=== PATIENT | female | born 1950 | race Asian ===

== ENCOUNTER 2017-05-28 21:52 | Inpatient (IN) | payer MEDICARE, MEDICAID ==
--- NOTE | 2017-05-28 23:04 | ED Physician Chart ---
ED Chief Complaint/HPI - Patient Information Date Seen:: 05/28/17 Time Seen:: 22:10 Chief Complaint:: Agitation; AMS History of Present Illness:: onset x one day of agitation, AMS; no report of SIs, H/As, neck pain, trauma, C/ P, SOB, Abd. Pain, A/N/V/D/c, fever, chills, or urinary s/s Allergies:: Allergies Allergy/AdvReac Type Severity Reaction Status Date / Time codeine Allergy Verified 05/28/17 22:13 Penicillins Allergy Verified 05/28/17 22:13 Vitals:: Vital Signs - 8 hr 05/28/17 22:10 Temp 98.2 F HR 95 RR 18 BP 131/76 O2 Sat % 96 Historian:: Patient, EMS Review:: Nurse's Note Reviewed, EMS run form Reviewed, Transfer documents Reviewed ED Review of Systems - Review of Systems General/Constitutional: No fever, No chills, No weight loss, No weakness, No diaphoresis, No edema, No loss of appetite Skin: No skin lesions, No rash, No bruising Head: No headache, No light-headedness Eyes: No loss of vision, No pain, No diplopia ENT: No earache, No nasal drainage, No sore throat, No tinnitus Neck: No neck pain, No swelling, No thyromegaly, No stiffness, No mass noted Cardio Vascular: No chest pain, No palpitations, No PND, No orthopnea, No edema Pulmonary: SOB, Cough, No sputum, Wheezing GI: No nausea, No vomiting, No diarrhea, No pain, No melena, No hematochezia, No constipation, No hematemesis G/U: No dysuria, No frequency, No hematuria [employer]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: No vaginal discharge, No abnormal vaginal bleed, No contraction Musculoskeletal: No bone or joint pain, No back pain, No muscle pain Endocrine: No polyuria, No polydipsia Psychiatric: Prior psych history, No depression, Anxiety, No suicidal ideation, No homicidal ideation, Auditory hallucination, No visual hallucination Hematopoietic: No bruising, No lymphadenopathy Allergic/Immuno: No urticaria, No angioedema Neurological: No syncope, No focal symptoms, Weakness, No paresthesia, No headache, No seizure, No dizziness, Confusion, No vertigo, Other Other: tremors ED Past Medical History - Past Medical History Obtainable: Yes Past Medical History: HTN, Asthma/COPD, Dyslipidemia, Thyroid disorder, Dementia Family History: HTN, Cancer Social History: Non Smoker, No Alcohol, No Drug Use, Single, Care Facility Surgical History: None Psychiatricy History: Depression, Schizophrenia, Bipolar Medication: Reviewed Family Medical History - Family Member Mother History Unknown: Yes ED Physical Exam - Physical Examination General/Constitutional: Awake, Well-developed, well-nourished, Alert, No distress, GCS 15, Non-toxic appearing, Ambulatory Head: Atraumatic Eyes: Lids, conjuctiva normal, PERRL, EOMI Skin: Nl inspection, No rash, No skin lesions, No ecchymosis, No lymphadenopathy Other Skin comments:: decreased turgor with dry mucous membranes ENMT: External ears, nose nl, Nasal exam nl, Lips, teeth, gums nl Neck: Nontender, Full ROM w/o pain, No JVD, No nuchal rigidity, No bruit, No mass, No stridor Respiratory: Nl effort/Exclusion, Clear to Auscultation, No Wheeze/Rhonchi/Rales Cardio Vascular: RRR, No murmur, gallop, rubs, NL S1 S2 GI: No tenderness/rebounding/guarding, No organomegaly, No hernia, Normal BS's, Nondistended, No mass/bruits, No McBurney tenderness : No CVA tenderness Extremities: No tenderness or effusion, Full ROM, normal strength in all extremities, No edema, Normal digits & nails Neuro/Psych: Alert/oriented, DTR's symmetric, Normal sensory exam, Normal motor strength, Judgement/insight normal, Mood normal, Normal gait, No focal deficits Misc: Normal back, No paraspinal tenderness ED Labs/Radiology/EKG Results - Lab Results Comments:: BUN: 40; Cr: 2.9; H/H; 11.1/33 - Radiology Results Comments:: CXR: NAD - EKG Interpretations EKG Time:: 23:26 Rate & Rhythm: 84; NSR Comments:: non-specific st-t changes; RBBB ED Septic Shock - . Is Septic Shock (SBP<90, OR Lactate>4 mmol\L) present?: No - <6hrs of presentation: Vital Signs: Vital Signs - 8 hr 05/28/17 22:10 Temp 98.2 F HR 95 RR 18 BP 131/76 O2 Sat % 96 ED Reassessment (Disposition) - Reassessment Reassessment Condition:: Improved - Diagnosis Diagnosis:: Anemia; Dehydration; Renal Faiure; Pre-Renal Azotemia; Sepsis; Agitation; AMS - Aftercare/Follow up Instructions Aftercare/Follow-Up Instructions:: Counseled pt regarding lab results/diagnosis & need follow up, Counseled pt & family regarding lab results/diagnosis & need follow up - Patient Disposition Discharge/Transfer:: Acute Care w/in this hosp Accepting Physician:: Dr. Baig Time Called:: 2339 Time Responded:: 23:40 Admitted to:: Med/Surg Spoke to:: Dr. Baig Admitting Medical Physician:: Dr. Baig Condition at Disposition:: Stable, Improved ED Discharge Plan - Patient Disposition Instructions: Psychosis
[2017-05-28 23:08] LABS: % BASOPHILS 1.3 % (0.0-2.0); % EOSINOPHILS 5.6 % (0.0-5.0); % LYMPHOCYTES 25.8 % (20.0-50.0); % MONOCYTES 9.1 % (2.0-10.0); % NEUTROPHILS 58.2 % (40.0-80.0); HEMOGLOBIN 11.1 gm/dL (12-16); MEAN CELL VOLUME 94.2 fl (81-100); MEAN CORPUSCULAR HEMOGLOBIN 31.8 pg (27.0-31.0); MEAN CORPUSCULAR HGB CONC 33.8 pg (28.0-36.0); MEAN PLATELET VOLUME 8.7 fl; NEUTROPHILE ABSOLUTE 3.3 Th/cmm (1.8-8.0); PLATELET COUNT 144 Th/cmm (150-400); RED CELL DISTRIBUTION WIDTH 13.1 % (11.5-20.0); WHITE BLOOD COUNT 5.7 Th/cmm (4.8-10.8)
[2017-05-28 23:24] LABS: ACETAMINOPHEN < 10.0 ug/mL (10.0-30.0); ALB/GLOB RATIO 1.2 (1.0-1.8); ALKALINE PHOSPHATASE 79 U/L (34-104); ANION GAP 9.7 (7.0-16.0); BILIRUBIN,TOTAL 0.2 mg/dL (0.3-1.0); BUN - UREA NITROGEN 40 mg/dL (7-25); BUN/CREATININE RATIO 13.8; CALCIUM SERUM 9.4 mg/dL (8.6-10.3); CARBON DIOXIDE 24.4 mEq/L (21.0-31.0); CHLORIDE 106 mEq/L (98-107); CHOLESTEROL 156 mg/dL (<200); CREATININE - SERUM 2.9 mg/dL (0.6-1.2); GLUCOSE 118 mg/dL (70-105); POTASSIUM SERUM 4.1 mEq/L (3.5-5.1); SGOT 16 U/L (13-39); SGPT/ALT 11 U/L (7-52); SODIUM SERUM 136 mEq/L (136-145); TRIGLYCERIDES 140 mg/dL (<150); TROP I 0.02 ng/mL (0.01-0.05)
[2017-05-28 23:33] LABS: INR 0.9 (0.5-1.4); PROTHROMBIN TIME (TEST) 9.4 SECONDS (9.5-11.5)
[2017-05-28] MEDS ORDERED: Levofloxacin 500mg/100mL 500 MG/100 ML BAG IV ONE ×2 (23:49→23:56)
[2017-05-28] MEDS ORDERED: Sodium Chloride 0.9% 1,000 ML IV ONE (23:49)
[2017-05-29 01:32] VITALS: BP 150/97
[2017-05-29] MEDS: 0.45% NS w/20 mEq KCl 1,000 ML IV SCH (02:35)
[2017-05-29] MEDS: cefTRIAXone 1 GM in Sodium Chloride 0.9% 50 ML IV SCH (03:15)
--- NOTE | 2017-05-29 07:35 | Diagnostic Imaging Report ---
CHEST X-RAY: AP view INDICATION: pain COMPARISON: None FINDINGS: Left basal density is noted. Mild increased initial lung markings are noted. No focal consolidation or effusions. Heart size is normal. Spinal scoliosis is noted. IMPRESSION: Left basal density probably due to superimposition of soft tissue structures. A small left effusion is considered less likely. Dedicated PA and lateral views would provide additional detail and assessment. Mild interstitial lung markings, nonspecific.
--- NOTE | 2017-05-29 09:16 | Consultation ---
DATE OF CONSULTATION: 05/29/2017 PSYCHIATRIC INITIAL EVALUATION AND MENTAL STATUS EXAM AGE: 67. SEX: Female. PHYSICIAN: Stan Baig M.D. CHAIRMAN CEO: Memo Geller M.D. TYPE OF THE REPORT: Psychiatric consult. REASON FOR THE CONSULT: Agitation and irritability. HISTORY OF PRESENT ILLNESS: The patient was admitted to the hospital because of increased agitation and increased paranoia. When the patient came to the Emergency Room, it was found that the patient has anemia and dehydration and the patient was admitted to the medical floor. The patient is confused and she is unable to provide any information. She is also restless and gets angry and agitated easily. She also unable to answer any of the questions coherently. The patient also seems to be slightly suspicious and slightly paranoid. She also was getting more agitated. When I asked the patient about how many children she has, her response was "10, no 20." She on the other hand was able to tell me about her date accurately. She did not know where does she live. PAST PSYCHIATRIC HISTORY: The patient has history of seems to be dementia. The patient currently is not on any anti-psychotic medications or any medications for memory. SOCIAL HISTORY: She lives in [place] in the [facility]. The patient has no known alcohol or drug use. ALLERGIES: No known allergies. MENTAL STATUS EXAM: The patient appears older than her stated age. Forgetful. Confused. Anxious. Disorganized thoughts. The patient was not able to give me any information regarding her living information as she is confused. The patient did not answer questions regarding suicide or homicide. The patient is alert, but seems to be disoriented to time, place, person, and situation. Poor insight and poor judgment. ASSESSMENT: PRIMARY DIAGNOSIS: Unspecified psychosis. SECONDARY DIAGNOSIS: Rule out dementia. TREATMENT PLAN: We will continue to monitor her behavior and her condition closely. Also, we will start the patient on Seroquel and we will adjust the dose. Also, Geropsych Unit when medically stable. JOB# [id number]
[2017-05-29 12:47] LABS: URINE BILIRUBIN NEGATIVE (NEGATIVE); URINE BLOOD NEGATIVE (NEGATIVE); URINE GLUCOSE (UA) NEGATIVE (NEGATIVE); URINE KETONE NEGATIVE (NEGATIVE); URINE PH 6.5 (4.6 - 8.0); URINE PROTEIN NEGATIVE (NEGATIVE); URINE UROBILINOGEN 0.2 E.U./dL (0.2 - 1.0)
[2017-05-29 13:08] LABS: URINE COLOR YELLOW
[2017-05-29 13:10] LABS: URINE BACTERIA NONE SEEN /hpf (NONE SEEN); URINE EPITHELIAL CELLS NONE SEEN /lpf (FEW); URINE RBC NONE SEEN /hpf (0-5)
[2017-05-29 13:11] LABS: AMPHETAMINE URINE NEGATIVE (NEGATIVE); BARBITURATES URINE NEGATIVE (NEGATIVE); METHADONE URINE NEGATIVE (NEGATIVE)
[2017-05-29] MEDS ORDERED: Probiotic Screen MC PRN (14:45)
[2017-05-29] MEDS ORDERED: Maalox 30 mL Cup PO PRN (19:28)
[2017-05-29] MEDS ORDERED: Magnesium Hydroxide (MOM) 30 mL UDC PO PRN (19:28)
--- NOTE | 2017-05-29 20:21 | History & Physical ---
ADMIT DATE: 05/29/2017 CHIEF COMPLAINT: Confusion and altered level of consciousness. HISTORY OF PRESENT ILLNESS: The patient is a 67-year-old female with long history of dementia, presented to the Emergency Room with severe confusion and altered level of consciousness. Initial workup significant for dehydration and possible sepsis. The patient admitted to the hospital and started on antibiotic fluids. Psych evaluation ordered. The patient is a poor historian. PAST MEDICAL HISTORY: Significant for hypertension, dementia, chronic anemia, psychosis and degenerative joint disease. PAST SURGICAL HISTORY: No recent surgery. ALLERGIES: She is allergic to codeine and penicillin. MEDICATIONS: Follow admission reconciliation. SOCIAL HISTORY: No smoking, no alcohol, no drugs. FAMILY HISTORY: Noncontributory. REVIEW OF SYSTEMS: RENAL SYSTEM: No history of chronic renal disorder. CARDIOVASCULAR SYSTEM: History of hypertension. ENDOCRINE SYSTEM: No diabetes or thyroid problem. GASTROINTESTINAL SYSTEM: No upper or lower gastrointestinal bleed. NEUROLOGICAL SYSTEM: She has history of dementia and psychosis. MUSCULOSKELETAL SYSTEM: She has degenerative joint disease. PHYSICAL EXAMINATION: GENERAL: She is arousable and agitated. VITAL SIGNS: Temperature 98.4, heart rate 86, blood pressure 148/97. HEENT: Normocephalic. Pupils reacting equal to light and accommodation. Sclerae clear. NECK: Supple. Negative for lymphadenopathy, JVD or bruit. CHEST: Bilateral normal. No rhonchi or wheezing. HEART: S1 and S2 normal. No murmur or gallop. ABDOMEN: Soft. Bowel sounds positive. EXTREMITIES: No edema. NEUROLOGICAL: She is arousable, not following commands. LABORATORY DATA: White blood cells 5.7, hemoglobin 11.1, hematocrit 33 and platelets 144. INR 0.90. Sodium 136, potassium 4.1, BUN 40, creatinine 2.9 and glucose 118. TSH 13.5. ASSESSMENT: 1. Altered level of consciousness. 2. Hypertension. 3. Dehydration. 4. Acute kidney injury. 5. Hypothyroidism. 6. Hypertension. 7. Dementia. 8. Psychosis. PLAN: The patient admitted to the hospital under Dr. Baig's service, IV fluid, IV antibiotic, psych evaluation. The patient will resume her medication and diet. CBC and CMP for tomorrow. JOB# [id number]
[2017-05-30] MEDS: 0.45% NS w/20 mEq KCl 1,000 ML IV SCH (01:02)
[2017-05-30] MEDS: cefTRIAXone 1 GM in Sodium Chloride 0.9% 50 ML IV SCH (03:34)
[2017-05-30] MEDS: Levothyroxine 0.088 Mg Tab PO SCH ×2 (06:36→06:41)
[2017-05-30] MEDS ORDERED: Lactobacillus Rhamnosus 10 Billion CFU Capsule PO SCH (09:00)
[2017-05-30] MEDS ORDERED: Pantoprazole 40 mg EC Tab PO SCH (09:00)
[2017-05-30] MEDS ORDERED: Atorvastatin Calcium 10 MG TAB PO SCH (09:00)
--- NOTE | 2017-05-30 18:24 | Internal Medicine Prog Note ---
Internal Medicine Subjective - Subjective Patient seen and examined:: with staff (SHE STILL REFUSING FOOD AND MEDICIN.) Patient is:: awake, in bed, talking Per staff patient has:: no adverse event Internal Medicine Objective - Results Result Diagrams: 05/28/17 22:56 05/28/17 22:56 Recent Labs: Laboratory Last Values WBC 5.7 Th/cmm (4.8-10.8) 05/28/17 22:56 RBC 3.50 Mil/cmm (3.80-5.20) L 05/28/17 22:56 Hgb 11.1 gm/dL (12-16) L 05/28/17 22:56 Hct 33.0 % (41.0-60) L 05/28/17 22:56 MCV 94.2 fl (81-100) 05/28/17 22:56 MCH 31.8 pg (27.0-31.0) H 05/28/17 22:56 MCHC Differential 33.8 pg (28.0-36.0) 05/28/17 22:56 RDW 13.1 % (11.5-20.0) 05/28/17 22:56 Plt Count 144 Th/cmm (150-400) L 05/28/17 22:56 MPV 8.7 fl 05/28/17 22:56 Neutrophils % 58.2 % (40.0-80.0) 05/28/17 22:56 Lymphocytes % 25.8 % (20.0-50.0) 05/28/17 22:56 Monocytes % 9.1 % (2.0-10.0) 05/28/17 22:56 Eosinophils % 5.6 % (0.0-5.0) H 05/28/17 22:56 Basophils % 1.3 % (0.0-2.0) 05/28/17 22:56 PT 9.4 SECONDS (9.5-11.5) L 05/28/17 22:56 INR 0.90 (0.5-1.4) 05/28/17 22:56 PTT (Actin FS) 23.0 SECONDS (26.0-38.0) L 05/28/17 22:56 Sodium 136 mEq/L (136-145) 05/28/17 22:56 Potassium 4.1 mEq/L (3.5-5.1) 05/28/17 22:56 Chloride 106 mEq/L (98-107) 05/28/17 22:56 Carbon Dioxide 24.4 mEq/L (21.0-31.0) 05/28/17 22:56 Anion Gap 9.7 (7.0-16.0) 05/28/17 22:56 BUN 40 mg/dL (7-25) H 05/28/17 22:56 Creatinine 2.9 mg/dL (0.6-1.2) H 05/28/17 22:56 Est GFR ( Amer) 20.8 ml/min (>90) 05/28/17 22:56 Est GFR (Non-Af Amer) 17.2 ml/min 05/28/17 22:56 BUN/Creatinine Ratio 13.8 05/28/17 22:56 Glucose 118 mg/dL (70-105) H 05/28/17 22:56 Hemoglobin A1c % 5.8 % (4.0-6.0) 05/28/17 22:56 Whole Bld Lactic Acid 0.79 mmol/L (0.60-1.99) 05/28/17 22:56 Calcium 9.4 mg/dL (8.6-10.3) 05/28/17 22:56 Total Bilirubin 0.2 mg/dL (0.3-1.0) L 05/28/17 22:56 AST 16 U/L (13-39) 05/28/17 22:56 ALT 11 U/L (7-52) 05/28/17 22:56 Alkaline Phosphatase 79 U/L (34-104) 05/28/17 22:56 Creatine Kinase 58 U/L (30-223) 05/28/17 22:56 Troponin I 0.02 ng/mL (0.01-0.05) 05/28/17 22:56 Total Protein 6.9 gm/dL (6.0-8.3) 05/28/17 22:56 Albumin 3.8 gm/dL (3.7-5.3) 05/28/17 22:56 Globulin 3.1 gm/dL 05/28/17 22:56 Albumin/Globulin Ratio 1.2 (1.0-1.8) 05/28/17 22:56 Triglycerides 140 mg/dL (<150) 05/28/17 22:56 Cholesterol 156 mg/dL (<200) 05/28/17 22:56 LDL Cholesterol Direct 81 mg/dL (75-193) 05/28/17 22:56 HDL Cholesterol 53 mg/dL (23-92) 05/28/17 22:56 TSH 13.05 uIU/ml (0.34-5.60) H 05/28/17 22:56 Urine Source MIDSTREAM 05/29/17 11:50 Urine Color YELLOW 05/29/17 11:50 Urine Clarity CLEAR (CLEAR) 05/29/17 11:50 Urine pH 6.5 (4.6 - 8.0) 05/29/17 11:50 Ur Specific [place]den 1.010 (1.005-1.030) 05/29/17 11:50 Urine Protein NEGATIVE mg/dL (NEGATIVE) 05/29/17 11:50 Urine Glucose (UA) NEGATIVE mg/dL (NEGATIVE) 05/29/17 11:50 Urine Ketones NEGATIVE mg/dL (NEGATIVE) 05/29/17 11:50 Urine Blood NEGATIVE (NEGATIVE) 05/29/17 11:50 Urine Nitrate NEGATIVE (NEGATIVE) 05/29/17 11:50 Urine Bilirubin NEGATIVE (NEGATIVE) 05/29/17 11:50 Urine Urobilinogen 0.2 E.U./dL (0.2 - 1.0) 05/29/17 11:50 Ur Leukocyte Esterase TRACE (NEGATIVE) H 05/29/17 11:50 Urine RBC NONE SEEN /hpf (0-5) 05/29/17 11:50 Urine WBC 2-5 /hpf (0-5) 05/29/17 11:50 Ur Epithelial Cells NONE SEEN /lpf (FEW) 05/29/17 11:50 Urine Bacteria NONE SEEN /hpf (NONE SEEN) 05/29/17 11:50 Salicylates < 25.0 mg/L (30.0-100.0) L 05/28/17 22:56 Urine Opiates Screen NEGATIVE (NEGATIVE) 05/29/17 11:50 Urine Methadone Screen NEGATIVE (NEGATIVE) 05/29/17 11:50 Acetaminophen < 10.0 ug/mL (10.0-30.0) L 05/28/17 22:56 Ur Barbiturates Screen NEGATIVE (NEGATIVE) 05/29/17 11:50 Ur Tricyclics Screen NEGATIVE (NEGATIVE) 05/29/17 11:50 Ur Phencyclidine Scrn NEGATIVE (NEGATIVE) 05/29/17 11:50 Amphetamines Screen NEGATIVE (NEGATIVE) 05/29/17 11:50 U Methamphetamines Scrn NEGATIVE (NEGATIVE) 05/29/17 11:50 U Benzodiazepines Scrn NEGATIVE (NEGATIVE) 05/29/17 11:50 U Cocaine Metab Screen NEGATIVE (NEGATIVE) 05/29/17 11:50 U Cannabinoids Screen NEGATIVE (NEGATIVE) 05/29/17 11:50 Ethyl Alcohol < 10 mg/dL (0-10) 05/28/17 22:56 RPR NONREACTIVE (NONREACTIVE) 05/28/17 22:56 - Physical Exam Vitals and I&O: Vital Signs Temp 98.9 F 05/30/17 04:00 Pulse 83 05/30/17 04:00 Resp 18 05/30/17 15:50 BP 144/72 05/30/17 04:00 Pulse Ox 97 05/30/17 04:00 Intake & Output 05/29/17 05/30/17 05/30/17 18:59 06:59 18:59 Intake Total 1060 110 Balance 1060 110 Weight (lbs) 61.689 kg 61.689 kg Intake: Intake, IV Amount 1000 50 0.45% NS w/20 mEq KCl 1, 1000 000 ml @ 75 mls/hr IV . [id number] [facility] Rx#:[id number] cefTRIAXone 1 gm In 50 Sodium Chloride 0.9% 50 ml @ 100 mls/hr IV Q24HR [facility] Rx#:[id number] Oral 60 60 Other: # Voids 2 3 Active Medications: Current Medications Acetaminophen (Tylenol) 650 mg PO Q6HR PRN PRN Reason: Pain (Mild) Stop: 07/28/17 19:27 Al Hydrox/Mg Hydrox/Simethicone (Maalox) 30 ml PO Q4HR PRN PRN Reason: GI DISTRESS Stop: 07/28/17 19:27 Atorvastatin Calcium (Lipitor) 10 mg PO DAILY [facility] PRN Reason: Protocol Stop: 07/29/17 08:59 Last Admin: 05/30/17 09:58 Dose: Not Given Docusate Sodium (Colace) 250 mg PO BID [facility] Stop: 07/29/17 08:59 Last Admin: 05/30/17 18:06 Dose: Not Given Ceftriaxone Sodium 1 gm/ (Sodium Chloride) 50 mls @ 100 mls/hr IV Q24HR [facility] Stop: 07/28/17 02:59 Last Infusion: 05/30/17 04:04 Dose: Infused Potassium Chloride/Sodium Chloride (0.45% Ns W/20 Meq Kcl) 1,000 mls @ 75 mls/ hr IV .[id number] [facility] Stop: 07/28/17 01:26 Last Admin: 05/30/17 01:02 Dose: 75 mls/hr Lactobacillus Rhamnosus (Culturelle) 1 each PO DAILY [facility] Stop: 07/29/17 08:59 Last Admin: 05/30/17 09:58 Dose: Not Given Levothyroxine Sodium (Synthroid) 0.088 mg PO QDAC [facility] Stop: 07/29/17 07:29 Last Admin: 05/30/17 06:41 Dose: Not Given Magnesium Hydroxide (Milk Of Magnesia) 30 ml PO Q4HR PRN PRN Reason: Constipation Stop: 07/28/17 19:27 Miscellaneous (Probiotic Screen) 1 ea MC PRN PRN PRN Reason: PROTOCOL Stop: 07/28/17 14:44 Pantoprazole Sodium (Protonix) 40 mg PO DAILY [facility] Stop: 07/29/17 08:59 Last Admin: 05/30/17 09:58 Dose: Not Given Vitamin D (Vitamin D) 400 iu PO DAILY [facility] Stop: 07/29/17 08:59 Last Admin: 05/30/17 09:58 Dose: Not Given General: alert, demented HEENT: NC/AT, PERRLA, EOMI, anicteric sclerae, throat clear Neck: Supple, No JVD, No thyromegaly, +2 carotid pulse wo bruit, No LAD Lungs: CTAB Cardiovascular: RRR, Normal S1, Normal S2, without murmur Abdomen: soft, non-tender, non-distended Extremities: clear Neurological: no change Internal Medicine Assmt/Plan - Assessment Assessment: 1.HTN. 2.DEHYDRATION. 3.SIMON. 4.DEMENTIA. - Plan Plan: CINTINUE ON CURRENT MEDICATION AND DIET. Nutritional Asmnt/Malnutr-PDOC - Dietary Evaluation Malnutrition Findings (Please click <Entered> for more info): Nutritional Asmnt/Malnutrition Start: 05/29/17 15: 47 Text: Status: Complete Freq: Document 05/29/17 15:47 SASHA (Rec: 05/29/17 16:08 [id number]) Nutritional Asmnt/Malnutrition Patient General Information Nutritional Screening High Risk Screening Diagnosis ER: dehydration, sepsis, anemia, pre-renal azotemia, renal failure, AMS Pertinent Medical Hx/Surgical Hx ER report: HTN, asthma/COPD, dyspilidemia, thyroid disorder , dementia Psych report: unspecified psychosis, r/o dementia Subjective Information 67 year old female. Pt was pleasant, able to provide simple nutrition hx, slight confusion noted. Encouraged increase fluid intake due to dehydration, listed beverage options available, pt nodded. Pt is edentulous, denied difficulties chewing/ swallowing. Pt denied allergies, denied nutritinoal concerns, stated good appetite . PHARMACEUTICAL WORKER at bedside denied nutritinoal concerns. No muscle/fat wasting noted. Current Diet Order/ Nutrition Support Mech soft ground Pertinent Medications Culturelle, IV Potassium Chloride Sodium Chloride Pertinent Labs 05/28: A1c 5.8, glucose 118H, BUN 40H, creatinine 2.9H Nutritional Hx/Data Height 1.63 m Height (Calculated Centimeters) 162.6 Current Weight (lbs) 61.326 kg Weight (Calculated Kilograms) 61.3 Weight (Calculated Grams) 02372.7 Ethel Body Weight 120 Weight Status Approriate GI Symptoms Food Allergies No Skin Integrity/Comment: [place]. Skin intact. Estimated Nutritional Goals BEE in Kcals: Using Current wt Calories/Kcals/Kg CBW 135.2lb/61.5kg Kcals Calculated 1845-2153kcal (30-35kcal/kg) Protein: Using Current wt Protein Calculated 74-86g (1.2-1.4g/kg, sepsis vs renal failure per ER report, monitor renal) Fluid: ml Per MD (renal failure per ER report) Nutritional Problem 1. Problem Problem Impaired nutrient utilization related to Etiology renal failure, dehydration aeb Signs/Symptoms: BUN 40H, creaitine 2.9H Intervention/Recommendation Comments 1. Recommend low sodium mech soft ground diet to aid renal function, renal failure noted in ER report. 2. Encourage fluid intake, dx dehydration. Expected Outcomes/Goals Expected Outcomes/Goals 1. PO intake to meet at least 75% of estimated nutritinoal eneds.
== END 2017-05-30 20:47 | DRG 872 ==
LOC: ER 21:52 → MSI 23:45
PROVIDERS: ADMIT Family Medicine; ATTEND Family Medicine
DX: A41.9 Sepsis, unspecified organism (principal); N17.9 Acute kidney failure, unspecified; F03.90 Unspecified dementia, unspecified severity, without behavioral disturbance, psychotic disturbance, mood disturbance, and anxiety; J44.9 Chronic obstructive pulmonary disease, unspecified; F20.9 Schizophrenia, unspecified; E86.0 Dehydration; I10 Essential (primary) hypertension; E03.9 Hypothyroidism, unspecified; F29 Unspecified psychosis not due to a substance or known physiological condition; M19.90 Unspecified osteoarthritis, unspecified site; D64.9 Anemia, unspecified; E78.5 Hyperlipidemia, unspecified; F31.9 Bipolar disorder, unspecified; Z88.5 Allergy status to narcotic agent; Z88.0 Allergy status to penicillin; Z82.49 Family history of ischemic heart disease and other diseases of the circulatory system
CPT/HCPCS: 36415-UA; 71010-TC; 80053-TC; 80061-TC; 80307; 80320-TC; 80329-TC; 81001-TC; 82550-TC; 83036-90; 83605; 84443-TC; 84484-TC; 85025-TC; 85610-TC; 85730-TC; 86592-TC; 93005; J0696; J1956; J3480; J7030; Z7610

== ENCOUNTER 2017-05-30 20:48 | Inpatient (IN) | payer MEDICARE, MEDICAID ==
[2017-05-30 21:36] VITALS: BP 135/75
[2017-05-30] MEDS ORDERED: Maalox 30 mL Cup PO PRN (22:05)
[2017-05-30] MEDS ORDERED: Magnesium Hydroxide (MOM) 30 mL UDC PO PRN (22:05)
--- NOTE | 2017-05-31 01:00 | Consultation ---
DATE OF CONSULTATION: 05/30/2017 IDENTIFYING INFORMATION: The patient is a 67-year-old female. CHIEF COMPLAINT: The patient has been agitated. HISTORY OF PRESENT ILLNESS: The patient was admitted to the hospital with possible sepsis. She has been also paranoid and delusional. The patient was restless, unable to participate in meaningful conversation, confused, stared at me aimlessly. PAST PSYCHIATRIC HISTORY: The patient was unable to give me any information regarding prior psychiatric treatment. The patient also has been dehydrated with possible sepsis, so she is not a greatest historian because of her medical condition. MEDICAL HISTORY: Has hypertension, dehydration, acute kidney injury, hypothyroidism, hypertension, psychosis with a history of dementia. FAMILY AND SOCIAL HISTORY: Unobtainable. The patient has been living in [place]. MENTAL STATUS EXAMINATION: The patient is appropriately dressed, not well groomed. She was staring at me, would not answer any of my questions, rambling, very poor insight. She has to be prompted by the staff for her ADLs. She is also suffering with sepsis and dehydration and so that may add to her medical condition. When asked about suicide and homicide, she would not answer me. I was unable to test her memory. Her insight and judgment is impaired. IMPRESSION: Psychosis, not otherwise specified, possible delirium secondary to her medical condition and delirium. PLAN: I expect her mental condition will improve and as her medical condition improves, possibly sepsis and dehydration, the patient can eat and continue with the Seroquel. Thank you very much for allowing me to participate in the care of this most interesting lady. [facility]# [id number]
[2017-05-31] MEDS: Levothyroxine 0.088 Mg Tab PO SCH (06:54)
[2017-05-31] MEDS: Lactobacillus Rhamnosus 10 Billion CFU Capsule PO SCH (09:00)
[2017-05-31] MEDS: Atorvastatin Calcium 10 MG TAB PO SCH (09:01)
[2017-05-31] MEDS: Pantoprazole 40 mg EC Tab PO SCH (09:01)
[2017-05-31] MEDS: risperiDONE 4 mg Tab PO SCH (21:19)
--- NOTE | 2017-06-01 00:20 | History & Physical ---
ADMIT DATE: 05/31/2017 CHIEF COMPLAINT: Agitation. HISTORY OF PRESENT ILLNESS: A 67-year-old female with past medical history significant for psychiatric disorder, Parkinson's disease, and hypothyroidism, presents from [facility] for agitation and mental status changes. The patient was brought to the Emergency Room, found to be dehydrated with possible urinary tract infection. She was admitted for further treatment and care. She was admitted to acute unit initially and now transferred after medically cleared to psychiatric unit. The patient is a poor historian and does not feel like participating in the history taking. However, she is calm and collected. Denies any medical complaints. PAST MEDICAL HISTORY: As per records, patient has history of Parkinson's disease, COPD, hyperlipidemia, hypothyroidism, hypertension, degenerative joint disease, psychiatric disorder, and chronic anemia. MEDICATIONS: As per reconciliation. ALLERGIES: The patient has allergy to penicillin and codeine. SOCIAL HISTORY: Denies tobacco, alcohol or illicit drug use. The patient is a [facility] resident. FAMILY HISTORY: Noncontributory. REVIEW OF SYSTEMS: IMMUNOLOGIC: No recurrent infection. CARDIOVASCULAR: The patient has history of hypertension, no known heart disease. GASTROINTESTINAL: No nausea, vomiting or diarrhea. The patient is on Protonix for GERD. ENDOCRINE: No diabetes. The patient does have thyroid disorder. NEUROLOGIC: No history of seizure or stroke. The patient has a history of Parkinson's disease. HEMATOLOGIC: No bleeding or clotting disorder. The patient has chronic anemia. PHYSICAL EXAMINATION: GENERAL: The patient is sitting in bed, in no acute distress. VITAL SIGNS: Temperature 98.1, pulse is 70, respirations 18, blood pressure 153/88. HEENT: Pupils equally round, anicteric sclerae. NECK: Supple. No JVD, mass or bruit. LUNGS: Clear to auscultation. HEART: S1, S2. Regular rate and rhythm. ABDOMEN: Soft, nontender, positive bowel sounds. EXTREMITIES: No clubbing, cyanosis or edema. BACK: No tenderness or deformity. NEUROLOGIC: Moves all extremities equally, no lateralizing sign. Able to communicate needs. LABORATORY DATA: BUN on admission was 40, creatinine 2.9, TSH is 13, albumin 3.8. Hemoglobin 11.1, platelets 144. IMPRESSION: 1. Acute psychiatric disorder. 2. Parkinson's disease. 3. Degenerative joint disease. 4. Hypertension. 5. Chronic anemia. 6. Hypothyroidism. 7. History of chronic obstructive pulmonary disease. 8. Hyperlipidemia. 9. Acute kidney injury with possible underlying chronic kidney disease. PLAN: Continue current medications. The patient is to have follow up of her blood test done in the acute unit to monitor the patient's renal function and anemia. I will resume her Cozaar given her high blood pressure. We will continue to monitor her vitals. The patient is participate in activity. JOB# [id number]
--- NOTE | 2017-06-01 02:54 | Psychosocial Evaluation ---
DATE OF SERVICE: 05/31/2017 JUSTIFICATION FOR HOSPITALIZATION: Agitation, verbally and physically aggressive, threatening staff. CHIEF COMPLAINT: "I don't know why I am here." HISTORY OF PRESENT ILLNESS: A 67-year-old female, agitated; admitted due to possible sepsis, paranoid, possibly delusional, confused, striking out at staff, aggressive towards staff, verbally and physically combative and aggressive towards staff, threatening staff. PAST PSYCHIATRIC HISTORY: She states she has been admitted to the hospital in the past, reasons unclear. FAMILY HISTORY: Unknown. MEDICATIONS: Reviewed. MEDICAL HISTORY: Please see full H and P. SOCIAL HISTORY: Born in [facility], not , no kids. The patient states she lives in [place] by herself, but in fact her address seems to be at [facility]. MENTAL STATUS EXAMINATION: Stated age. Fair eye contact. Speech, low volume. Mood "okay." Affect flat. Thought processes were confused. No overt SI or HI. It is unclear if she is having any psychotic symptoms. Poor insight, poor judgment, poor impulse control. PROVISIONAL DIAGNOSES: Psychosis, unspecified; possibly delirium. ESTIMATED LENGTH OF STAY: 5-10 days. ASSESSMENT: The patient is combative, aggressive, agitated, not safe for a lower level of care. PLAN: We will continue to monitor. Recommend cross tapering antipsychotics and utilizing one antipsychotic either Seroquel or Risperdal at a high dose. For now, we will continue medications and increase collateral. CONDITIONS FOR DISCHARGE: Improved mood, improved affect, cessation of any SI or HI, better control of her combative symptoms. [facility]# [id number]
[2017-06-01] MEDS: Levothyroxine 0.088 Mg Tab PO SCH (06:51)
[2017-06-01] MEDS: Atorvastatin Calcium 10 MG TAB PO SCH (08:44)
[2017-06-01] MEDS: Lactobacillus Rhamnosus 10 Billion CFU Capsule PO SCH (08:45)
[2017-06-01] MEDS: Pantoprazole 40 mg EC Tab PO SCH (08:45)
--- NOTE | 2017-06-01 16:42 | General Progress Note ---
Subjective - Review of Systems Service Date: 06/01/17 Subjective: awake and communicative confused refused lab draw today Objective - Physical Exam Vitals and I&O: Vital Signs Temp 98.1 F 06/01/17 14:00 Pulse 83 06/01/17 14:00 Resp 20 06/01/17 14:00 BP 138/98 06/01/17 14:00 Pulse Ox 99 06/01/17 14:00 Intake & Output 05/31/17 06/01/17 06/01/17 18:59 06:59 18:59 Intake Total 1200 240 Balance 1200 240 Intake: Oral 1200 240 Other: # Voids 1 # Bowel Movements 1 Active Medications: Current Medications Acetaminophen (Tylenol) 650 mg PO Q6HR PRN PRN Reason: Pain (Mild) Stop: 07/29/17 22:04 Al Hydrox/Mg Hydrox/Simethicone (Maalox) 30 ml PO Q4HR PRN PRN Reason: GI DISTRESS Stop: 07/29/17 22:04 Atorvastatin Calcium (Lipitor) 10 mg PO DAILY [facility] PRN Reason: Protocol Stop: 07/30/17 08:59 Last Admin: 06/01/17 08:44 Dose: Not Given Docusate Sodium (Colace) 250 mg PO BID [facility] Stop: 07/30/17 08:59 Last Admin: 06/01/17 16:05 Dose: Not Given Lactobacillus Rhamnosus (Culturelle) 1 each PO DAILY [facility] Stop: 07/30/17 08:59 Last Admin: 06/01/17 08:45 Dose: Not Given Levothyroxine Sodium (Synthroid) 0.088 mg PO QDAC [facility] Stop: 07/30/17 07:29 Last Admin: 06/01/17 06:51 Dose: Not Given Lorazepam (Ativan) 0.5 mg PO Q4HR PRN; Protocol PRN Reason: Agitation Stop: 07/30/17 07:30 Losartan Potassium (Cozaar) 50 mg PO DAILY [facility] Stop: 07/31/17 08:59 Last Admin: 06/01/17 08:45 Dose: Not Given Magnesium Hydroxide (Milk Of Magnesia) 30 ml PO Q4HR PRN PRN Reason: Constipation Stop: 07/29/17 22:04 Pantoprazole Sodium (Protonix) 40 mg PO DAILY [facility] Stop: 07/30/17 08:59 Last Admin: 06/01/17 08:45 Dose: Not Given Quetiapine Fumarate (Seroquel) 100 mg PO BID [facility] PRN Reason: Protocol Stop: 07/30/17 08:59 Last Admin: 06/01/17 16:05 Dose: Not Given Risperidone (Risperdal) 4 mg PO HS [facility] PRN Reason: Protocol Stop: 07/30/17 20:59 Last Admin: 05/31/17 21:19 Dose: Not Given Vitamin D (Vitamin D) 400 iu PO DAILY [facility] Stop: 07/30/17 08:59 Last Admin: 06/01/17 08:45 Dose: Not Given General: No acute distress HEENT: Atraumatic, PERRLA, EOMI Neck: Supple, JVD Cardiovascular: Regular rate, Normal S1, Normal S2 Lungs: Clear to auscultation Abdomen: Bowel sounds, Soft Neurological: Normal speech Assessment/Plan - Assessment Assessment: parkinson's djd htn hypothyroidism carin copd - Plan Plan: cont current treatment advised about importance of monitoring blood tests
[2017-06-01] MEDS: risperiDONE 4 mg Tab PO SCH (21:25)
--- NOTE | 2017-06-02 02:52 | Progress Notes ---
DATE: 06/01/2017 SUBJECTIVE: The patient seen, chart reviewed, discussed with staff. The patient remains confused here because of agitation, paranoia, striking out at staff, aggressive towards staff. The patient has been calm while she has been here, but seems to be somewhat internally preoccupied, ruminative, impoverished. She is quite confused. She does not really know why she is here. She is currently on Seroquel and Risperdal. Medications were noted. No side effects. She remains isolative. ASSESSMENT: The patient remains symptomatic, isolative, disoriented, impulsive and unpredictable. PLAN: Given her ongoing symptoms and the reasons that she came to the hospital, she is not safe for discharge. [facility]# [id number]
[2017-06-02] MEDS: Levothyroxine 0.088 Mg Tab PO SCH (06:36)
[2017-06-02] MEDS: Atorvastatin Calcium 10 MG TAB PO SCH (08:08)
[2017-06-02] MEDS: Pantoprazole 40 mg EC Tab PO SCH (08:08)
[2017-06-02] MEDS: Lactobacillus Rhamnosus 10 Billion CFU Capsule PO SCH (08:08)
--- NOTE | 2017-06-02 18:33 | Internal Medicine Prog Note ---
Internal Medicine Subjective - Subjective Service Date: 06/02/17 Patient seen and examined:: with staff Patient is:: awake, in bed, confused Per staff patient has:: no adverse event Internal Medicine Objective - Physical Exam Vitals and I&O: Vital Signs Temp 98.3 F 06/02/17 15:26 Pulse 86 06/02/17 15:28 Resp 18 06/02/17 15:28 BP 131/85 06/02/17 15:26 Pulse Ox 98 06/02/17 15:26 Intake & Output 06/01/17 06/02/17 06/02/17 18:59 06:59 18:59 Intake Total 3445 652 3243 Balance 5777 716 1863 Intake: Oral 2872 587 6464 Other: # Voids 1 4 # Bowel Movements 1 1 1 Stool Characteristics Liquid Formed Brown Brown Active Medications: Current Medications Acetaminophen (Tylenol) 650 mg PO Q6HR PRN PRN Reason: Pain (Mild) Stop: 07/29/17 22:04 Al Hydrox/Mg Hydrox/Simethicone (Maalox) 30 ml PO Q4HR PRN PRN Reason: GI DISTRESS Stop: 07/29/17 22:04 Atorvastatin Calcium (Lipitor) 10 mg PO DAILY [facility] PRN Reason: Protocol Stop: 07/30/17 08:59 Last Admin: 06/02/17 08:08 Dose: Not Given Docusate Sodium (Colace) 250 mg PO BID [facility] Stop: 07/30/17 08:59 Last Admin: 06/02/17 16:02 Dose: Not Given Lactobacillus Rhamnosus (Culturelle) 1 each PO DAILY [facility] Stop: 07/30/17 08:59 Last Admin: 06/02/17 08:08 Dose: Not Given Levothyroxine Sodium (Synthroid) 0.088 mg PO QDAC [facility] Stop: 07/30/17 07:29 Last Admin: 06/02/17 06:36 Dose: Not Given Lorazepam (Ativan) 0.5 mg PO Q4HR PRN; Protocol PRN Reason: Agitation Stop: 07/30/17 07:30 Losartan Potassium (Cozaar) 50 mg PO DAILY [facility] Stop: 07/31/17 08:59 Last Admin: 06/02/17 08:08 Dose: Not Given Magnesium Hydroxide (Milk Of Magnesia) 30 ml PO Q4HR PRN PRN Reason: Constipation Stop: 07/29/17 22:04 Pantoprazole Sodium (Protonix) 40 mg PO DAILY [facility] Stop: 07/30/17 08:59 Last Admin: 06/02/17 08:08 Dose: Not Given Quetiapine Fumarate (Seroquel) 100 mg PO BID [facility] PRN Reason: Protocol Stop: 07/30/17 08:59 Last Admin: 06/02/17 16:02 Dose: Not Given Risperidone (Risperdal) 4 mg PO HS [facility] PRN Reason: Protocol Stop: 07/30/17 20:59 Last Admin: 06/01/17 21:25 Dose: Not Given Vitamin D (Vitamin D) 400 iu PO DAILY [facility] Stop: 07/30/17 08:59 Last Admin: 06/02/17 08:08 Dose: Not Given General: demented HEENT: NC/AT, PERRLA, EOMI, anicteric sclerae, throat clear Neck: Supple, No JVD, No thyromegaly Lungs: CTAB Cardiovascular: RRR, Normal S1, Normal S2, without murmur Abdomen: non-tender, non-distended Extremities: clear Neurological: no change Internal Medicine Assmt/Plan - Assessment Assessment: 1.PARKINSON DISEASE. 2.HTN. 3.HYPOTHYROIDISM. 4.DEMENTIA. - Plan Plan: CONTINUE ON CURRENT MEDICATION AND DIET.
[2017-06-02] MEDS: risperiDONE 4 mg Tab PO SCH (20:35)
[2017-06-03] MEDS: Levothyroxine 0.088 Mg Tab PO SCH (06:45)
[2017-06-03] MEDS: Pantoprazole 40 mg EC Tab PO SCH (09:00)
[2017-06-03] MEDS: Atorvastatin Calcium 10 MG TAB PO SCH (09:00)
[2017-06-03] MEDS: Lactobacillus Rhamnosus 10 Billion CFU Capsule PO SCH (10:54)
--- NOTE | 2017-06-03 20:19 | Internal Medicine Prog Note ---
Internal Medicine Subjective - Subjective Service Date: 06/03/17 Patient seen and examined:: without staff Patient is:: awake, in bed, confused Per staff patient has:: no adverse event Internal Medicine Objective - Physical Exam Vitals and I&O: Vital Signs Temp 97.6 F 06/03/17 14:00 Pulse 78 06/03/17 14:00 Resp 20 06/03/17 14:00 BP 132/77 06/03/17 14:00 Pulse Ox 98 06/03/17 14:00 Intake & Output 06/03/17 06/03/17 06/04/17 06:59 18:59 06:59 Intake Total 300 850 Output Total 1 Balance 299 850 Intake: Oral 300 850 Output: Stool 1 Other: # Voids 1 4 # Bowel Movements 0 0 Stool Characteristics Formed Formed Brown Brown Active Medications: Current Medications Acetaminophen (Tylenol) 650 mg PO Q6HR PRN PRN Reason: Pain (Mild) Stop: 07/29/17 22:04 Al Hydrox/Mg Hydrox/Simethicone (Maalox) 30 ml PO Q4HR PRN PRN Reason: GI DISTRESS Stop: 07/29/17 22:04 Atorvastatin Calcium (Lipitor) 10 mg PO DAILY [facility] PRN Reason: Protocol Stop: 07/30/17 08:59 Last Admin: 06/03/17 09:00 Dose: Not Given Docusate Sodium (Colace) 250 mg PO BID [facility] Stop: 07/30/17 08:59 Last Admin: 06/03/17 16:51 Dose: Not Given Lactobacillus Rhamnosus (Culturelle) 1 each PO DAILY [facility] Stop: 07/30/17 08:59 Last Admin: 06/03/17 10:54 Dose: Not Given Levothyroxine Sodium (Synthroid) 0.088 mg PO QDAC [facility] Stop: 07/30/17 07:29 Last Admin: 06/03/17 06:45 Dose: Not Given Lorazepam (Ativan) 0.5 mg PO Q4HR PRN; Protocol PRN Reason: Agitation Stop: 07/30/17 07:30 Losartan Potassium (Cozaar) 50 mg PO DAILY [facility] Stop: 07/31/17 08:59 Last Admin: 06/03/17 10:55 Dose: Not Given Magnesium Hydroxide (Milk Of Magnesia) 30 ml PO Q4HR PRN PRN Reason: Constipation Stop: 07/29/17 22:04 Pantoprazole Sodium (Protonix) 40 mg PO DAILY [facility] Stop: 07/30/17 08:59 Last Admin: 06/03/17 09:00 Dose: Not Given Quetiapine Fumarate (Seroquel) 100 mg PO BID [facility] PRN Reason: Protocol Stop: 07/30/17 08:59 Last Admin: 06/03/17 16:51 Dose: Not Given Risperidone (Risperdal) 4 mg PO HS [facility] PRN Reason: Protocol Stop: 07/30/17 20:59 Last Admin: 06/02/17 20:35 Dose: Not Given Vitamin D (Vitamin D) 400 iu PO DAILY [facility] Stop: 07/30/17 08:59 Last Admin: 06/03/17 09:00 Dose: Not Given General: demented HEENT: NC/AT, PERRLA, EOMI, anicteric sclerae, throat clear Neck: Supple, No JVD, No thyromegaly Lungs: CTAB Cardiovascular: RRR, Normal S1, Normal S2, without murmur Abdomen: non-tender, non-distended Extremities: clear Neurological: no change Internal Medicine Assmt/Plan - Assessment Assessment: 1.PARKINSON DISEASE. 2.HTN. 3.HYPOTHYROIDISM. 4.DEMENTIA. - Plan Plan: CONTINUE ON CURRENT MEDICATION AND DIET.
[2017-06-03] MEDS: risperiDONE 4 mg Tab PO SCH ×2 (20:28)
--- NOTE | 2017-06-03 21:20 | Progress Notes ---
DATE: 06/02/2017 SUBJECTIVE: Chart reviewed and the patient interviewed. Also discussed the patient's condition with the staff and reviewed records and labs. The patient is still combative and she is still aggressive. The patient also is angry and in irritable mood. She also is still refusing to answer questions and refusing to take medications and have difficulty dealing with staff and following directions. She also is still verbally agitated and gets aggressive with the staff when they try to help her with her ADLs. Otherwise, the patient is eating well and sleeping fairly. ASSESSMENT: The patient still can be dangerous to others. TREATMENT PLAN: We will continue to monitor her behavior and her condition closely. Also, continue to discuss with the patient the importance of compliance with taking her medications and the patient will take her medications regularly. Otherwise, we have to file for [place] petition to enforce medications. JOB# [id number]
[2017-06-04] MEDS: Levothyroxine 0.088 Mg Tab PO SCH (06:48)
[2017-06-04] MEDS: Atorvastatin Calcium 10 MG TAB PO SCH (17:12)
[2017-06-04] MEDS: Lactobacillus Rhamnosus 10 Billion CFU Capsule PO SCH (17:13)
[2017-06-04] MEDS: Pantoprazole 40 mg EC Tab PO SCH (17:15)
--- NOTE | 2017-06-04 19:56 | Internal Medicine Prog Note ---
Internal Medicine Subjective - Subjective Service Date: 06/04/17 Patient seen and examined:: with staff Patient is:: awake, in bed, confused Per staff patient has:: no adverse event Internal Medicine Objective - Physical Exam Vitals and I&O: Vital Signs Temp 98.5 F 06/04/17 14:00 Pulse 74 06/04/17 14:00 Resp 20 06/04/17 14:00 BP 98/69 06/04/17 14:00 Pulse Ox 97 06/04/17 14:00 Intake & Output 06/04/17 06/04/17 06/05/17 06:59 18:59 06:59 Intake Total 1200 Balance 1200 Intake: Oral 1200 Other: # Bowel Movements 1 Active Medications: Current Medications Acetaminophen (Tylenol) 650 mg PO Q6HR PRN PRN Reason: Pain (Mild) Stop: 07/29/17 22:04 Al Hydrox/Mg Hydrox/Simethicone (Maalox) 30 ml PO Q4HR PRN PRN Reason: GI DISTRESS Stop: 07/29/17 22:04 Atorvastatin Calcium (Lipitor) 10 mg PO DAILY [facility] PRN Reason: Protocol Stop: 07/30/17 08:59 Last Admin: 06/04/17 17:12 Dose: Not Given Docusate Sodium (Colace) 250 mg PO BID [facility] Stop: 07/30/17 08:59 Last Admin: 06/04/17 17:12 Dose: Not Given Lactobacillus Rhamnosus (Culturelle) 1 each PO DAILY [facility] Stop: 06/06/17 10:00 Last Admin: 06/04/17 17:13 Dose: Not Given Levothyroxine Sodium (Synthroid) 0.088 mg PO QDAC [facility] Stop: 07/30/17 07:29 Last Admin: 06/04/17 06:48 Dose: Not Given Lorazepam (Ativan) 0.5 mg PO Q4HR PRN; Protocol PRN Reason: Agitation Stop: 07/30/17 07:30 Losartan Potassium (Cozaar) 50 mg PO DAILY [facility] Stop: 07/31/17 08:59 Last Admin: 06/04/17 17:13 Dose: Not Given Magnesium Hydroxide (Milk Of Magnesia) 30 ml PO Q4HR PRN PRN Reason: Constipation Stop: 07/29/17 22:04 Pantoprazole Sodium (Protonix) 40 mg PO DAILY [facility] Stop: 07/30/17 08:59 Last Admin: 06/04/17 17:15 Dose: Not Given Quetiapine Fumarate (Seroquel) 100 mg PO BID [facility] PRN Reason: Protocol Stop: 07/30/17 08:59 Last Admin: 06/04/17 18:08 Dose: Not Given Risperidone (Risperdal) 2 mg PO HS [facility] PRN Reason: Protocol Stop: 08/03/17 20:59 Vitamin D (Vitamin D) 400 iu PO DAILY [facility] Stop: 07/30/17 08:59 Last Admin: 06/04/17 17:15 Dose: Not Given General: demented HEENT: NC/AT, PERRLA, EOMI, anicteric sclerae, throat clear Neck: Supple, No JVD, No thyromegaly Lungs: CTAB Cardiovascular: RRR, Normal S1, Normal S2, without murmur Abdomen: non-tender, non-distended Extremities: clear Neurological: no change Internal Medicine Assmt/Plan - Assessment Assessment: 1.PARKINSON DISEASE. 2.HTN. 3.HYPOTHYROIDISM. 4.DEMENTIA. - Plan Plan: CONTINUE ON CURRENT MEDICATION AND DIET. Nutritional Asmnt/Malnutr-PDOC - Dietary Evaluation Malnutrition Findings (Please click <Entered> for more info): Nutritional Asmnt/Malnutrition Start: 06/04/17 15: 10 Text: Status: Complete Freq: Document 06/04/17 15:10 LCHENG (Rec: 06/04/17 15:33 LCHENG [id number]) Nutritional Asmnt/Malnutrition Patient General Information Nutritional Screening Moderate Risk Screening Diagnosis psychosis Pertinent Medical Hx/Surgical Hx Parkinson's disease, COPD, hyperlipidemia, hypothyroidism , HTN, degenerative joint disease, psychiatric disorder, chronic anemia Subjective Information Pt is confused, not appropriate to visit at this time. Talked with nursing staff, pt is eating well, 50% of breakfast and 60% lunch today. Tolerated to current diet, no chewing or swallowing problem. PO intake varied 25- 100% per EMR. [facility] facility before admitted per H &P. Current Diet Order/ Nutrition Support Mechanical Soft Chopped, CCHO, MARILU Patient / S.O Not Indicated Pertinent Medications Colace, Culturelle, Synthroid, Seroquel, Vitamin D Pertinent Labs on addmission (per H&P): BUN 40 H, Cr 2.9 H, TSH 13 H, Alb 3.8, Hgb 11.1 L Nutritional Hx/Data Height 1.63 m Height (Calculated Centimeters) 162.6 Current Weight (lbs) 61.689 kg Weight (Calculated Kilograms) 61.7 Weight (Calculated Grams) 81797.6 [place] Body Weight 120 % [place] Body Weight 113 Weight Status Approriate GI Symptoms GI Symptoms None Food Allergies No Skin Integrity/Comment: intact Current %PO 25-100% Estimated Nutritional Goals BEE in Kcals: Using Current wt Calories/Kcals/Kg 25-30 Kcals Calculated 2529-1849 Protein: Using Current wt Protein g/k Protein Calculated 55 Fluid: ml 5334-9216 Nutritional Problem No current Nutrition Prob Problem N/A Etiology N/A Signs/Symptoms: N/A Malnutrition Alert Protein-Calorie Malnutrition N/A Is there a minimum of two criteria No selected? Query Text:Check all the applicable criteria. A minimum of two criteria are recommended for diagnosis of either severe or non-severe malnutrition. Intervention/Recommendation Comments 1. Contibue with current diet order, monitor PO intake 2. Monitor labs related to anemia and live function Expected Outcomes/Goals Expected Outcomes/Goals 1. PO intake > 75% to meet recommended nutritional needs 2. wt stability 3. lab values to approach WNL
--- NOTE | 2017-06-05 04:00 | Progress Notes ---
DATE: 06/03/2017 SUBJECTIVE: Chart reviewed and the patient interviewed. Also discussed the patient's condition with the staff and reviewed records and labs. The patient is still guarded and suspicious. She also is still actively responding to stimuli. She also is talking to herself and she is still easily agitated. The patient also is still refusing to take medications for no apparent reason. She also is still verbally abusive to staff and others. The patient is on Seroquel and Risperdal, but she has been refusing to take medications. She also still needs lots of redirections because of her irritability and agitation as well as her aggressive behavior. ASSESSMENT: The patient is still psychotic and agitated and noncompliant with medications. TREATMENT PLAN: We will continue to monitor her behavior and her condition closely. Also, we will continue to work on her irritability and we will continue to follow up. JOB# [id number]
--- NOTE | 2017-06-05 06:31 | Progress Notes ---
DATE: 06/04/2017 SUBJECTIVE: Chart reviewed and the patient interviewed. Also discussed the patient's condition with the staff and reviewed records and labs. The patient continued to be bizarre and acting in suspicious and paranoid way. She also is still withdrawn and she is still interacting minimally with others. The patient also is still actively responding. The patient also refused to take any psych medications and she is still giving no reason for her refusal. At times, the patient also seems to be confused. ASSESSMENT: The patient is still psychotic and confused. TREATMENT PLAN: We will continue monitoring the patient's behavior and condition closely. Also, we will encourage the patient to take her medications and I will decrease Risperdal today to 2 mg twice a day which we will plan to stop Risperdal since the patient is taking also Seroquel at dose of 100 mg twice a day. We will continue to monitor her behavior closely and we will continue to follow up. JOB# [id number]
[2017-06-05] MEDS: Levothyroxine 0.088 Mg Tab PO SCH (06:41)
[2017-06-05] MEDS: Atorvastatin Calcium 10 MG TAB PO SCH (08:34)
[2017-06-05] MEDS: Pantoprazole 40 mg EC Tab PO SCH (08:34)
[2017-06-05] MEDS: Lactobacillus Rhamnosus 10 Billion CFU Capsule PO SCH (08:34)
--- NOTE | 2017-06-05 19:19 | Internal Medicine Prog Note ---
Internal Medicine Subjective - Subjective Service Date: 06/05/17 Patient seen and examined:: with staff Patient is:: awake, in bed, confused Per staff patient has:: no adverse event Internal Medicine Objective - Physical Exam Vitals and I&O: Vital Signs Temp 98.2 F 06/05/17 14:00 Pulse 79 06/05/17 14:00 Resp 20 06/05/17 14:00 BP 119/76 06/05/17 14:00 Pulse Ox 96 06/05/17 14:00 Intake & Output 06/05/17 06/05/17 06/06/17 06:59 18:59 06:59 Intake Total 120 1000 Balance 120 1000 Intake: Oral 120 1000 Other: # Voids 3 3 # Bowel Movements 1 Stool Characteristics Formed Brown Active Medications: Current Medications Acetaminophen (Tylenol) 650 mg PO Q6HR PRN PRN Reason: Pain (Mild) Stop: 07/29/17 22:04 Al Hydrox/Mg Hydrox/Simethicone (Maalox) 30 ml PO Q4HR PRN PRN Reason: GI DISTRESS Stop: 07/29/17 22:04 Atorvastatin Calcium (Lipitor) 10 mg PO DAILY E[facility]IEL PRN Reason: Protocol Stop: 07/30/17 08:59 Last Admin: 06/05/17 08:34 Dose: Not Given Docusate Sodium (Colace) 250 mg PO BID [facility] Stop: 07/30/17 08:59 Last Admin: 06/05/17 16:13 Dose: Not Given Lactobacillus Rhamnosus (Culturelle) 1 each PO DAILY [facility] Stop: 06/06/17 10:00 Last Admin: 06/05/17 08:34 Dose: Not Given Levothyroxine Sodium (Synthroid) 0.088 mg PO QDAC [facility] Stop: 07/30/17 07:29 Last Admin: 06/05/17 06:41 Dose: Not Given Lorazepam (Ativan) 0.5 mg PO Q4HR PRN; Protocol PRN Reason: Agitation Stop: 07/30/17 07:30 Losartan Potassium (Cozaar) 50 mg PO DAILY [facility] Stop: 07/31/17 08:59 Last Admin: 06/05/17 08:34 Dose: Not Given Magnesium Hydroxide (Milk Of Magnesia) 30 ml PO Q4HR PRN PRN Reason: Constipation Stop: 07/29/17 22:04 Pantoprazole Sodium (Protonix) 40 mg PO DAILY [facility] Stop: 07/30/17 08:59 Last Admin: 06/05/17 08:34 Dose: Not Given Quetiapine Fumarate (Seroquel) 100 mg PO BID [facility] PRN Reason: Protocol Stop: 07/30/17 08:59 Last Admin: 06/05/17 16:13 Dose: Not Given Risperidone (Risperdal) 2 mg PO HS [facility]EL PRN Reason: Protocol Stop: 08/03/17 20:59 Last Admin: 06/04/17 20:53 Dose: Not Given Vitamin D (Vitamin D) 400 iu PO DAILY [facility] Stop: 07/30/17 08:59 Last Admin: 06/05/17 08:34 Dose: Not Given General: demented HEENT: NC/AT, PERRLA, EOMI, anicteric sclerae, throat clear Neck: Supple, No JVD, No thyromegaly Lungs: CTAB Cardiovascular: RRR, Normal S1, Normal S2, without murmur Abdomen: non-tender, non-distended Extremities: clear Neurological: no change Internal Medicine Assmt/Plan - Assessment Assessment: 1.PARKINSON DISEASE. 2.HTN. 3.HYPOTHYROIDISM. 4.DEMENTIA. - Plan Plan: CONTINUE ON CURRENT MEDICATION AND DIET. Nutritional Asmnt/Malnutr-PDOC - Dietary Evaluation Malnutrition Findings (Please click <Entered> for more info): Nutritional Asmnt/Malnutrition Start: 06/04/17 15: 10 Text: Status: Complete Freq: Document 06/04/17 15:10 LCHENG (Rec: 06/04/17 15:33 LCHENG [id number]) Nutritional Asmnt/Malnutrition Patient General Information Nutritional Screening Moderate Risk Screening Diagnosis psychosis Pertinent Medical Hx/Surgical Hx Parkinson's disease, COPD, hyperlipidemia, hypothyroidism , HTN, degenerative joint disease, psychiatric disorder, chronic anemia Subjective Information Pt is confused, not appropriate to visit at this time. Talked with nursing staff, pt is eating well, 50% of breakfast and 60% lunch today. Tolerated to current diet, no chewing or swallowing problem. PO intake varied 25- 100% per EMR. Pt lived at senior living facility before admitted per H &P. Current Diet Order/ Nutrition Support Mechanical Soft Chopped, CCHO, MARILU Patient / S.O Not Indicated Pertinent Medications Colace, Culturelle, Synthroid, Seroquel, Vitamin D Pertinent Labs on addmission (per H&P): BUN 40 H, Cr 2.9 H, TSH 13 H, Alb 3.8, Hgb 11.1 L Nutritional Hx/Data Height 1.63 m Height (Calculated Centimeters) 162.6 Current Weight (lbs) 61.689 kg Weight (Calculated Kilograms) 61.7 Weight (Calculated Grams) 23719.6 [place] Body Weight 120 % [place] Body Weight 113 Weight Status Approriate GI Symptoms GI Symptoms None Food Allergies No Skin Integrity/Comment: intact Current %PO 25-100% Estimated Nutritional Goals BEE in Kcals: Using Current wt Calories/Kcals/Kg 25-30 Kcals Calculated 6395-2344 Protein: Using Current wt Protein g/k Protein Calculated 55 Fluid: ml 9204-7737 Nutritional Problem No current Nutrition Prob Problem N/A Etiology N/A Signs/Symptoms: N/A Malnutrition Alert Protein-Calorie Malnutrition N/A Is there a minimum of two criteria No selected? Query Text:Check all the applicable criteria. A minimum of two criteria are recommended for diagnosis of either severe or non-severe malnutrition. Intervention/Recommendation Comments 1. Contibue with current diet order, monitor PO intake 2. Monitor labs related to anemia and live function Expected Outcomes/Goals Expected Outcomes/Goals 1. PO intake > 75% to meet recommended nutritional needs 2. wt stability 3. lab values to approach WNL
--- NOTE | 2017-06-06 03:18 | Progress Notes ---
DATE: SUBJECTIVE: Chart reviewed and the patient interviewed. Also, discussed the patient's condition with the staff and reviewed records and labs. The patient is still actively agitated and angry and she is still resisting care. The patient also still stays by herself most of the time and she is refusing to take medications and uncooperative with the staffs. She also easily agitated. When I tried to discuss with her the reasons why she is not taking medications, her answer is "I don't need to talk to you and I don't need a psychiatrist," and that is in angry manner. She also is still uncooperative with staff who did try to help her and refused even redirections. ASSESSMENT: The patient is still psychotic. TREATMENT PLAN: Continue to work on her agitation and her compliance with medications. Also, continue to work on her ineffective coping and anger. JOB# [id number]
[2017-06-06] MEDS: Levothyroxine 0.088 Mg Tab PO SCH (06:39)
[2017-06-06] MEDS: Pantoprazole 40 mg EC Tab PO SCH (08:01)
[2017-06-06] MEDS: Lactobacillus Rhamnosus 10 Billion CFU Capsule PO SCH (08:01)
[2017-06-06] MEDS: Atorvastatin Calcium 10 MG TAB PO SCH (08:01)
--- NOTE | 2017-06-06 17:10 | Internal Medicine Prog Note ---
Internal Medicine Subjective - Subjective Service Date: 06/06/17 Patient seen and examined:: with staff Patient is:: awake, in bed, confused Per staff patient has:: no adverse event Internal Medicine Objective - Physical Exam Vitals and I&O: Vital Signs Temp 97.6 F 06/06/17 14:46 Pulse 80 06/06/17 14:46 Resp 20 06/06/17 14:46 BP 120/89 06/06/17 14:46 Pulse Ox 96 06/06/17 14:46 Intake & Output 06/05/17 06/06/17 06/06/17 18:59 06:59 18:59 Intake Total 1000 Balance 1000 Intake: Oral 1000 Other: # Voids 3 # Bowel Movements 1 Stool Characteristics Formed Brown Active Medications: Current Medications Acetaminophen (Tylenol) 650 mg PO Q6HR PRN PRN Reason: Pain (Mild) Stop: 07/29/17 22:04 Al Hydrox/Mg Hydrox/Simethicone (Maalox) 30 ml PO Q4HR PRN PRN Reason: GI DISTRESS Stop: 07/29/17 22:04 Atorvastatin Calcium (Lipitor) 10 mg PO DAILY EZEQUIEL PRN Reason: Protocol Stop: 07/30/17 08:59 Last Admin: 06/06/17 08:01 Dose: Not Given Docusate Sodium (Colace) 250 mg PO BID [facility] Stop: 07/30/17 08:59 Last Admin: 06/06/17 16:13 Dose: Not Given Levothyroxine Sodium (Synthroid) 0.088 mg PO QDAC EZEQUIEL Stop: 07/30/17 07:29 Last Admin: 06/06/17 06:39 Dose: Not Given Lorazepam (Ativan) 0.5 mg PO Q4HR PRN; Protocol PRN Reason: Agitation Stop: 07/30/17 07:30 Losartan Potassium (Cozaar) 50 mg PO DAILY [facility] Stop: 07/31/17 08:59 Last Admin: 06/06/17 08:01 Dose: Not Given Magnesium Hydroxide (Milk Of Magnesia) 30 ml PO Q4HR PRN PRN Reason: Constipation Stop: 07/29/17 22:04 Pantoprazole Sodium (Protonix) 40 mg PO DAILY [facility] Stop: 07/30/17 08:59 Last Admin: 06/06/17 08:01 Dose: Not Given Quetiapine Fumarate (Seroquel) 100 mg PO BID EZEQUIEL PRN Reason: Protocol Stop: 07/30/17 08:59 Last Admin: 06/06/17 16:13 Dose: Not Given Risperidone (Risperdal) 2 mg PO HS EZEQUIEL PRN Reason: Protocol Stop: 08/03/17 20:59 Last Admin: 06/05/17 21:49 Dose: Not Given Vitamin D (Vitamin D) 400 iu PO DAILY EZEQUIEL Stop: 07/30/17 08:59 Last Admin: 06/06/17 08:01 Dose: Not Given General: demented HEENT: NC/AT, PERRLA, EOMI, anicteric sclerae, throat clear Neck: Supple, No JVD, No thyromegaly Lungs: CTAB Cardiovascular: RRR, Normal S1, Normal S2, without murmur Abdomen: non-tender, non-distended Extremities: clear Neurological: no change Internal Medicine Assmt/Plan - Assessment Assessment: 1.PARKINSON DISEASE. 2.HTN. 3.HYPOTHYROIDISM. 4.DEMENTIA. - Plan Plan: CONTINUE ON CURRENT MEDICATION AND DIET. Nutritional Asmnt/Malnutr-PDOC - Dietary Evaluation Malnutrition Findings (Please click <Entered> for more info): Nutritional Asmnt/Malnutrition Start: 06/04/17 15: 10 Text: Status: Complete Freq: Document 06/04/17 15:10 LCSING (Rec: 06/04/17 15:33 LCSING [email or web address]) Nutritional Asmnt/Malnutrition Patient General Information Nutritional Screening Moderate Risk Diagnosis psychosis Pertinent Medical Hx/Surgical Hx Parkinson's disease, COPD, hyperlipidemia, hypothyroidism , HTN, degenerative joint disease, psychiatric disorder, chronic anemia Subjective Information Pt is confused, not appropriate to visit at this time. Talked with nursing staff, pt is eating well, 50% of breakfast and 60% lunch today. Tolerated to current diet, no chewing or swallowing problem. PO intake varied 25- 100% per EMR. Pt lived at [facility] facility before admitted per H &P. Current Diet Order/ Nutrition Support Mechanical Soft Chopped, CCHO, MARILU Patient / S.O Not Indicated Pertinent Medications Colace, Culturelle, Synthroid, Seroquel, Vitamin D Pertinent Labs on addmission (per H&P): BUN 40 H, Cr 2.9 H, TSH 13 H, Alb 3.8, Hgb 11.1 L Nutritional Hx/Data Height 1.63 m Height (Calculated Centimeters) 162.6 Current Weight (lbs) 61.689 kg Weight (Calculated Kilograms) 61.7 Weight (Calculated Grams) 14962.6 [place] Body Weight 120 % [place] Body Weight 113 Weight Status Approriate GI Symptoms GI Symptoms None Food Allergies No Skin Integrity/Comment: intact Current %PO 25-100% Estimated Nutritional Goals BEE in Kcals: Using Current wt Calories/Kcals/Kg 25-30 Kcals Calculated 4170-8691 Protein: Using Current wt Protein g/k Protein Calculated 55 Fluid: ml 7851-3610 Nutritional Problem No current Nutrition Prob Problem N/A Etiology N/A Signs/Symptoms: N/A Malnutrition Alert Protein-Calorie Malnutrition N/A Is there a minimum of two criteria No selected? Query Text:Check all the applicable criteria. A minimum of two criteria are recommended for diagnosis of either severe or non-severe malnutrition. Intervention/Recommendation Comments 1. Contibue with current diet order, monitor PO intake 2. Monitor labs related to anemia and live function Expected Outcomes/Goals Expected Outcomes/Goals 1. PO intake > 75% to meet recommended nutritional needs 2. wt stability 3. lab values to approach WNL
[2017-06-07] MEDS: Levothyroxine 0.088 Mg Tab PO SCH (06:38)
[2017-06-07] MEDS: Atorvastatin Calcium 10 MG TAB PO SCH ×2 (09:08→09:41)
[2017-06-07] MEDS: Pantoprazole 40 mg EC Tab PO SCH ×2 (09:08→09:42)
--- NOTE | 2017-06-07 21:53 | Internal Medicine Prog Note ---
Internal Medicine Subjective - Subjective Service Date: 06/07/17 Patient seen and examined:: without staff Patient is:: awake, in bed, confused Per staff patient has:: no adverse event Internal Medicine Objective - Physical Exam Vitals and I&O: Vital Signs Temp 98.0 F 06/07/17 20:00 Pulse 78 06/07/17 20:00 Resp 17 06/07/17 20:00 BP 115/85 06/07/17 20:00 Pulse Ox 97 06/07/17 20:00 Intake & Output 06/07/17 06/07/17 06/08/17 06:59 18:59 05:59 Intake Total 240 1000 Balance 240 1000 Intake: Oral 240 1000 Other: # Voids 1 4 # Bowel Movements 1 Stool Characteristics Formed Formed Brown Brown Active Medications: Current Medications Acetaminophen (Tylenol) 650 mg PO Q6HR PRN PRN Reason: Pain (Mild) Stop: 07/29/17 22:04 Al Hydrox/Mg Hydrox/Simethicone (Maalox) 30 ml PO Q4HR PRN PRN Reason: GI DISTRESS Stop: 07/29/17 22:04 Atorvastatin Calcium (Lipitor) 10 mg PO DAILY EZEQUIEL PRN Reason: Protocol Stop: 07/30/17 08:59 Last Admin: 06/07/17 09:41 Dose: Not Given Docusate Sodium (Colace) 250 mg PO BID [facility] Stop: 07/30/17 08:59 Last Admin: 06/07/17 17:22 Dose: Not Given Levothyroxine Sodium (Synthroid) 0.088 mg PO QDAC E[facility] Stop: 07/30/17 07:29 Last Admin: 06/07/17 06:38 Dose: Not Given Lorazepam (Ativan) 0.5 mg PO Q4HR PRN; Protocol PRN Reason: Agitation Stop: 07/30/17 07:30 Losartan Potassium (Cozaar) 50 mg PO DAILY [facility] Stop: 07/31/17 08:59 Last Admin: 06/07/17 09:41 Dose: Not Given Magnesium Hydroxide (Milk Of Magnesia) 30 ml PO Q4HR PRN PRN Reason: Constipation Stop: 07/29/17 22:04 Pantoprazole Sodium (Protonix) 40 mg PO DAILY [facility] Stop: 07/30/17 08:59 Last Admin: 06/07/17 09:42 Dose: Not Given Quetiapine Fumarate (Seroquel) 100 mg PO BID EZEQUIEL PRN Reason: Protocol Stop: 07/30/17 08:59 Last Admin: 06/07/17 17:22 Dose: Not Given Risperidone (Risperdal) 2 mg PO HS EZEQUIEL PRN Reason: Protocol Stop: 08/03/17 20:59 Last Admin: 06/06/17 21:00 Dose: Not Given Vitamin D (Vitamin D) 400 iu PO DAILY [facility] Stop: 07/30/17 08:59 Last Admin: 06/07/17 09:42 Dose: Not Given General: demented HEENT: NC/AT, PERRLA, EOMI, anicteric sclerae, throat clear Neck: Supple, No JVD, No thyromegaly Lungs: CTAB Cardiovascular: RRR, Normal S1, Normal S2, without murmur Abdomen: non-tender, non-distended Extremities: clear Neurological: no change Internal Medicine Assmt/Plan - Assessment Assessment: 1.PARKINSON DISEASE. 2.HTN. 3.HYPOTHYROIDISM. 4.DEMENTIA. - Plan Plan: CONTINUE ON CURRENT MEDICATION AND DIET. Nutritional Asmnt/Malnutr-PDOC - Dietary Evaluation Malnutrition Findings (Please click <Entered> for more info): Nutritional Asmnt/Malnutrition Start: 06/04/17 15: 10 Text: Status: Complete Freq: Document 06/04/17 15:10 SING (Rec: 06/04/17 15:33 SING [email or web address]) Nutritional Asmnt/Malnutrition Patient General Information Nutritional Screening Moderate Risk Diagnosis psychosis Pertinent Medical Hx/Surgical Hx Parkinson's disease, COPD, hyperlipidemia, hypothyroidism , HTN, degenerative joint disease, psychiatric disorder, chronic anemia Subjective Information Pt is confused, not appropriate to visit at this time. Talked with nursing staff, pt is eating well, 50% of breakfast and 60% lunch today. Tolerated to current diet, no chewing or swallowing problem. PO intake varied 25- 100% per EMR. Pt lived at custodial facility before admitted per H &P. Current Diet Order/ Nutrition Support Mechanical Soft Chopped, CCHO, MARILU Patient / S.O Not Indicated Pertinent Medications Colace, Culturelle, Synthroid, Seroquel, Vitamin D Pertinent Labs on addmission (per H&P): BUN 40 H, Cr 2.9 H, TSH 13 H, Alb 3.8, Hgb 11.1 L Nutritional Hx/Data Height 1.63 m Height (Calculated Centimeters) 162.6 Current Weight (lbs) 61.689 kg Weight (Calculated Kilograms) 61.7 Weight (Calculated Grams) 66127.6 [place] Body Weight 120 % [place] Body Weight 113 Weight Status Approriate GI Symptoms GI Symptoms None Food Allergies No Skin Integrity/Comment: intact Current %PO 25-100% Estimated Nutritional Goals BEE in Kcals: Using Current wt Calories/Kcals/Kg 25-30 Kcals Calculated 6574-4355 Protein: Using Current wt Protein g/k Protein Calculated 55 Fluid: ml 5918-4837 Nutritional Problem No current Nutrition Prob Problem N/A Etiology N/A Signs/Symptoms: N/A Malnutrition Alert Protein-Calorie Malnutrition N/A Is there a minimum of two criteria No selected? Query Text:Check all the applicable criteria. A minimum of two criteria are recommended for diagnosis of either severe or non-severe malnutrition. Intervention/Recommendation Comments 1. Contibue with current diet order, monitor PO intake 2. Monitor labs related to anemia and live function Expected Outcomes/Goals Expected Outcomes/Goals 1. PO intake > 75% to meet recommended nutritional needs 2. wt stability 3. lab values to approach WNL
[2017-06-08] MEDS: Levothyroxine 0.088 Mg Tab PO SCH (06:32)
[2017-06-08] MEDS: Atorvastatin Calcium 10 MG TAB PO SCH (09:16)
[2017-06-08] MEDS: Pantoprazole 40 mg EC Tab PO SCH (09:17)
--- NOTE | 2017-06-08 11:39 | Progress Notes ---
DATE: 06/07/2017 SUBJECTIVE: Chart reviewed and the patient interviewed. Also discussed the patient's condition with the staff and reviewed records and labs. The patient is still in angry and in irritable mood. The patient also is still suspicious and paranoid and she is still guarded. She also is still easily agitated and easily irritable. She is also uncooperative with her treatment and she is still resisting care and refused to take medications. In spite of explaining to her by decreased Risperdal, yet she is still not accepting the fact and she is still fighting in regard to taking medications for no reason. ASSESSMENT: The patient is still psychotic and can be dangerous to others. TREATMENT PLAN: Continue to monitor her behavior and her condition closely. Also, continue to work on her compliance towards medications and also work on discharge plans. JOB# [id number]
--- NOTE | 2017-06-08 18:28 | Consultation ---
DATE OF CONSULTATION: The patient was seen and evaluated. The patient's chart was reviewed. Overnight, nurses have reported that the patient has been refusing the medications, been actually irritable. Today on [id number] evaluation, she is very suspicious that one of her roommate is trying to kill her and appeared to be very suspicious, impaired, and still worries about that person. MENTAL STATUS EXAMINATION: Still paranoid, delusional, believing that one of her roommate is going to kill her, and unable to formulate a safe plan. ASSESSMENT AND PLAN: The patient is a 67-year-old female who presents disorganized, psychotic, and believing that her roommate is going to kill her. In the meantime, we will continue to monitor and evaluate into the patient's psychotic behavior. She is unable to formulate a safe plan outside the structured environment. Continue with primary psychiatric treatment plan and goals, which include quetiapine 100 mg p.o. b.i.d., which currently have been ____ risperidone 2 p.o. b.i.d. It is unclear whether at this point the medications are being cross titrated, but we will continue with the current medication regimen as she is able to tolerate and currently refused the medications, she may be a candidate for [place] when the court is open. [facility]# [id number]
--- NOTE | 2017-06-08 18:33 | Internal Medicine Prog Note ---
Internal Medicine Subjective - Subjective Service Date: 06/08/17 Patient seen and examined:: without staff Patient is:: awake, in bed, confused Per staff patient has:: no adverse event Internal Medicine Objective - Physical Exam Vitals and I&O: Vital Signs Temp 97.6 F 06/08/17 18:23 Pulse 92 06/08/17 18:23 Resp 19 06/08/17 18:23 BP 106/57 06/08/17 18:23 Pulse Ox 95 06/08/17 18:23 Intake & Output 06/07/17 06/08/17 06/08/17 19:59 06:59 18:59 Intake Total 650 Balance 650 Intake: Oral 650 Other: # Voids 3 # Bowel Movements 1 Stool Characteristics Active Medications: Current Medications Acetaminophen (Tylenol) 650 mg PO Q6HR PRN PRN Reason: Pain (Mild) Stop: 07/29/17 22:04 Al Hydrox/Mg Hydrox/Simethicone (Maalox) 30 ml PO Q4HR PRN PRN Reason: GI DISTRESS Stop: 07/29/17 22:04 Atorvastatin Calcium (Lipitor) 10 mg PO DAILY EZEQUIEL PRN Reason: Protocol Stop: 07/30/17 08:59 Last Admin: 06/08/17 09:16 Dose: Not Given Docusate Sodium (Colace) 250 mg PO BID [facility] Stop: 07/30/17 08:59 Last Admin: 06/08/17 16:52 Dose: Not Given Levothyroxine Sodium (Synthroid) 0.088 mg PO QDAC [facility] Stop: 07/30/17 07:29 Last Admin: 06/08/17 06:32 Dose: Not Given Lorazepam (Ativan) 0.5 mg PO Q4HR PRN; Protocol PRN Reason: Agitation Stop: 07/30/17 07:30 Losartan Potassium (Cozaar) 50 mg PO DAILY [facility] Stop: 07/31/17 08:59 Last Admin: 06/08/17 09:16 Dose: Not Given Magnesium Hydroxide (Milk Of Magnesia) 30 ml PO Q4HR PRN PRN Reason: Constipation Stop: 07/29/17 22:04 Pantoprazole Sodium (Protonix) 40 mg PO DAILY [facility] Stop: 07/30/17 08:59 Last Admin: 06/08/17 09:17 Dose: Not Given Quetiapine Fumarate (Seroquel) 100 mg PO BID EZEQUIEL PRN Reason: Protocol Stop: 07/30/17 08:59 Last Admin: 06/08/17 16:52 Dose: Not Given Risperidone (Risperdal) 2 mg PO HS EZEQUIEL PRN Reason: Protocol Stop: 08/03/17 20:59 Last Admin: 06/07/17 21:00 Dose: Not Given Vitamin D (Vitamin D) 400 iu PO DAILY [facility] Stop: 07/30/17 08:59 Last Admin: 06/08/17 09:17 Dose: Not Given General: demented HEENT: NC/AT, PERRLA, EOMI, anicteric sclerae, throat clear Neck: Supple, No JVD, No thyromegaly Lungs: CTAB Cardiovascular: RRR, Normal S1, Normal S2, without murmur Abdomen: non-tender, non-distended Extremities: clear Neurological: no change Internal Medicine Assmt/Plan - Assessment Assessment: 1.PARKINSON DISEASE. 2.HTN. 3.HYPOTHYROIDISM. 4.DEMENTIA. - Plan Plan: CONTINUE ON CURRENT MEDICATION AND DIET. Nutritional Asmnt/Malnutr-PDOC - Dietary Evaluation Malnutrition Findings (Please click <Entered> for more info): Nutritional Asmnt/Malnutrition Start: 06/04/17 15: 10 Text: Status: Complete Freq: Document 06/04/17 15:10 LCSING (Rec: 06/04/17 15:33 LCSING [id number]) Nutritional Asmnt/Malnutrition Patient General Information Nutritional Screening Moderate Risk Diagnosis psychosis Pertinent Medical Hx/Surgical Hx Parkinson's disease, COPD, hyperlipidemia, hypothyroidism , HTN, degenerative joint disease, psychiatric disorder, chronic anemia Subjective Information Pt is confused, not appropriate to visit at this time. Talked with nursing staff, pt is eating well, 50% of breakfast and 60% lunch today. Tolerated to current diet, no chewing or swallowing problem. PO intake varied 25- 100% per EMR. Pt lived at [facility] facility before admitted per H &P. Current Diet Order/ Nutrition Support Mechanical Soft Chopped, CCHO, MARILU Patient / S.O Not Indicated Pertinent Medications Colace, Culturelle, Synthroid, Seroquel, Vitamin D Pertinent Labs on addmission (per H&P): BUN 40 H, Cr 2.9 H, TSH 13 H, Alb 3.8, Hgb 11.1 L Nutritional Hx/Data Height 1.63 m Height (Calculated Centimeters) 162.6 Current Weight (lbs) 61.689 kg Weight (Calculated Kilograms) 61.7 Weight (Calculated Grams) 84474.6 [place] Body Weight 120 % [place] Body Weight 113 Weight Status Approriate GI Symptoms GI Symptoms None Food Allergies No Skin Integrity/Comment: intact Current %PO 25-100% Estimated Nutritional Goals BEE in Kcals: Using Current wt Calories/Kcals/Kg 25-30 Kcals Calculated 1604-6179 Protein: Using Current wt Protein g/k Protein Calculated 55 Fluid: ml 3338-0123 Nutritional Problem No current Nutrition Prob Problem N/A Etiology N/A Signs/Symptoms: N/A Malnutrition Alert Protein-Calorie Malnutrition N/A Is there a minimum of two criteria No selected? Query Text:Check all the applicable criteria. A minimum of two criteria are recommended for diagnosis of either severe or non-severe malnutrition. Intervention/Recommendation Comments 1. Contibue with current diet order, monitor PO intake 2. Monitor labs related to anemia and live function Expected Outcomes/Goals Expected Outcomes/Goals 1. PO intake > 75% to meet recommended nutritional needs 2. wt stability 3. lab values to approach WNL
[2017-06-09] MEDS: Levothyroxine 0.088 Mg Tab PO SCH (06:45)
[2017-06-09] MEDS: Pantoprazole 40 mg EC Tab PO SCH (10:00)
[2017-06-09] MEDS: Atorvastatin Calcium 10 MG TAB PO SCH (10:00)
--- NOTE | 2017-06-09 11:42 | Progress Notes ---
DATE: SUBJECTIVE: The patient was seen and evaluated. The patient's chart reviewed. This is Dr. Torres covering for Dr. Geller. Overnight, nursing staff reported that the patient presents suspicious, irritable, and agitated. Today on [id number] evaluation, the patient presents uncooperative, easily irritated and agitated, unable to maintain a linear conversation. MENTAL STATUS EXAMINATION: Still disorganized, paranoid, suspicious. ASSESSMENT AND PLAN: The patient is a 67-year-old female, who continues to present disorganized and unable to engage in linear conversation. We will continue with the primary psychiatrist's treatment plan and goal, which includes Seroquel and risperidone, at this point medications being augmented. We will continue monitoring and evaluating. [facility]# [id number]
--- NOTE | 2017-06-09 17:26 | Internal Medicine Prog Note ---
Internal Medicine Subjective - Subjective Service Date: 06/09/17 Patient seen and examined:: without staff Patient is:: awake, in bed, confused Per staff patient has:: no adverse event Internal Medicine Objective - Physical Exam Vitals and I&O: Vital Signs Temp 97.8 F 06/09/17 16:23 Pulse 85 06/09/17 16:23 Resp 19 06/09/17 16:23 BP 111/59 06/09/17 16:23 Pulse Ox 98 06/09/17 16:23 Intake & Output 06/08/17 06/09/17 06/09/17 18:59 06:59 18:59 Intake Total 650 120 Balance 650 120 Weight (lbs) 59.557 kg Intake: Oral 650 120 Other: # Voids 3 3 # Bowel Movements 1 Stool Characteristics Formed Formed Brown Brown Active Medications: Current Medications Acetaminophen (Tylenol) 650 mg PO Q6HR PRN PRN Reason: Pain (Mild) Stop: 07/29/17 22:04 Al Hydrox/Mg Hydrox/Simethicone (Maalox) 30 ml PO Q4HR PRN PRN Reason: GI DISTRESS Stop: 07/29/17 22:04 Atorvastatin Calcium (Lipitor) 10 mg PO DAILY EZEQUIEL PRN Reason: Protocol Stop: 07/30/17 08:59 Last Admin: 06/09/17 10:00 Dose: Not Given Docusate Sodium (Colace) 250 mg PO BID [facility] Stop: 07/30/17 08:59 Last Admin: 06/09/17 10:00 Dose: Not Given Levothyroxine Sodium (Synthroid) 0.088 mg PO QDAC [facility] Stop: 07/30/17 07:29 Last Admin: 06/09/17 06:45 Dose: Not Given Lorazepam (Ativan) 0.5 mg PO Q4HR PRN; Protocol PRN Reason: Agitation Stop: 07/30/17 07:30 Losartan Potassium (Cozaar) 50 mg PO DAILY [facility] Stop: 07/31/17 08:59 Last Admin: 06/09/17 10:00 Dose: Not Given Magnesium Hydroxide (Milk Of Magnesia) 30 ml PO Q4HR PRN PRN Reason: Constipation Stop: 07/29/17 22:04 Pantoprazole Sodium (Protonix) 40 mg PO DAILY [facility] Stop: 07/30/17 08:59 Last Admin: 06/09/17 10:00 Dose: Not Given Quetiapine Fumarate (Seroquel) 100 mg PO BID EZEQUIEL PRN Reason: Protocol Stop: 07/30/17 08:59 Last Admin: 06/09/17 10:00 Dose: Not Given Vitamin D (Vitamin D) 400 iu PO DAILY [facility] Stop: 07/30/17 08:59 Last Admin: 06/09/17 10:00 Dose: Not Given General: demented HEENT: NC/AT, PERRLA, EOMI, anicteric sclerae, throat clear Neck: Supple, No JVD, No thyromegaly Lungs: CTAB Cardiovascular: RRR, Normal S1, Normal S2, without murmur Abdomen: non-tender, non-distended Extremities: clear Neurological: no change Internal Medicine Assmt/Plan - Assessment Assessment: 1.PARKINSON DISEASE. 2.HTN. 3.HYPOTHYROIDISM. 4.DEMENTIA. - Plan Plan: CONTINUE ON CURRENT MEDICATION AND DIET. Nutritional Asmnt/Malnutr-PDOC - Dietary Evaluation Malnutrition Findings (Please click <Entered> for more info): Nutritional Asmnt/Malnutrition Start: 06/04/17 15: 10 Text: Status: Complete Freq: Document 06/04/17 15:10 LCHENG (Rec: 06/04/17 15:33 LCHENG [id number]) Nutritional Asmnt/Malnutrition Patient General Information Nutritional Screening Moderate Risk Diagnosis psychosis Pertinent Medical Hx/Surgical Hx Parkinson's disease, COPD, hyperlipidemia, hypothyroidism , HTN, degenerative joint disease, psychiatric disorder, chronic anemia Subjective Information Pt is confused, not appropriate to visit at this time. Talked with nursing staff, pt is eating well, 50% of breakfast and 60% lunch today. Tolerated to current diet, no chewing or swallowing problem. PO intake varied 25- 100% per EMR. Pt lived at group home facility before admitted per H &P. Current Diet Order/ Nutrition Support Mechanical Soft Chopped, CCHO, MARILU Patient / S.O Not Indicated Pertinent Medications Colace, Culturelle, Synthroid, Seroquel, Vitamin D Pertinent Labs on addmission (per H&P): BUN 40 H, Cr 2.9 H, TSH 13 H, Alb 3.8, Hgb 11.1 L Nutritional Hx/Data Height 1.63 m Height (Calculated Centimeters) 162.6 Current Weight (lbs) 61.689 kg Weight (Calculated Kilograms) 61.7 Weight (Calculated Grams) 83869.6 [place] Body Weight 120 % [place] Body Weight 113 Weight Status Approriate GI Symptoms GI Symptoms None Food Allergies No Skin Integrity/Comment: intact Current %PO 25-100% Estimated Nutritional Goals BEE in Kcals: Using Current wt Calories/Kcals/Kg 25-30 Kcals Calculated 8885-7970 Protein: Using Current wt Protein g/k Protein Calculated 55 Fluid: ml 9904-0832 Nutritional Problem No current Nutrition Prob Problem N/A Etiology N/A Signs/Symptoms: N/A Malnutrition Alert Protein-Calorie Malnutrition N/A Is there a minimum of two criteria No selected? Query Text:Check all the applicable criteria. A minimum of two criteria are recommended for diagnosis of either severe or non-severe malnutrition. Intervention/Recommendation Comments 1. Contibue with current diet order, monitor PO intake 2. Monitor labs related to anemia and live function Expected Outcomes/Goals Expected Outcomes/Goals 1. PO intake > 75% to meet recommended nutritional needs 2. wt stability 3. lab values to approach WNL
--- NOTE | 2017-06-10 06:50 | Progress Notes ---
DATE: SUBJECTIVE: Chart reviewed and the patient interviewed. I also discussed the patient's condition with the staff and reviewed records and labs. The patient is still suspicious and is still paranoid. The patient also is still in angry mood and she seems to be confused. Also, her response is not coherent and she is still refusing to take psychotropic medications for no apparent reason. The patient also is still having mood swings and irritability. Otherwise, the patient has no major behavioral problems. ASSESSMENT: The patient is still agitated, but not aggressive. TREATMENT PLAN: We will discontinue Risperdal and we will continue on Seroquel. Also continue to work on her compliance with medications. Also, we will continue to work on discharge plans and placement issue. JOB# [id number]
[2017-06-10] MEDS: Levothyroxine 0.088 Mg Tab PO SCH (06:52)
[2017-06-10] MEDS: Atorvastatin Calcium 10 MG TAB PO SCH (09:05)
[2017-06-10] MEDS: Pantoprazole 40 mg EC Tab PO SCH (09:05)
--- NOTE | 2017-06-10 20:04 | Internal Medicine Prog Note ---
Internal Medicine Subjective - Subjective Service Date: 06/10/17 Patient seen and examined:: without staff Patient is:: awake, in bed, confused Per staff patient has:: no adverse event Internal Medicine Objective - Physical Exam Vitals and I&O: Vital Signs Temp 97.8 F 06/10/17 16:20 Pulse 96 06/10/17 16:20 Resp 20 06/10/17 16:20 BP 101/73 06/10/17 16:20 Pulse Ox 97 06/10/17 16:20 Intake & Output 06/10/17 06/10/17 06/11/17 06:59 18:59 06:59 Intake Total 300 Balance 300 Intake: Oral 300 Other: # Voids 1 # Bowel Movements 0 Active Medications: Current Medications Acetaminophen (Tylenol) 650 mg PO Q6HR PRN PRN Reason: Pain (Mild) Stop: 07/29/17 22:04 Al Hydrox/Mg Hydrox/Simethicone (Maalox) 30 ml PO Q4HR PRN PRN Reason: GI DISTRESS Stop: 07/29/17 22:04 Atorvastatin Calcium (Lipitor) 10 mg PO DAILY E[facility]QU[facility]EL PRN Reason: Protocol Stop: 07/30/17 08:59 Last Admin: 06/10/17 09:05 Dose: Not Given Docusate Sodium (Colace) 250 mg PO BID [facility] Stop: 07/30/17 08:59 Last Admin: 06/10/17 09:05 Dose: Not Given Levothyroxine Sodium (Synthroid) 0.088 mg PO QDAC [facility] Stop: 07/30/17 07:29 Last Admin: 06/10/17 06:52 Dose: Not Given Lorazepam (Ativan) 0.5 mg PO Q4HR PRN; Protocol PRN Reason: Agitation Stop: 07/30/17 07:30 Losartan Potassium (Cozaar) 50 mg PO DAILY [facility] Stop: 07/31/17 08:59 Last Admin: 06/10/17 09:05 Dose: Not Given Magnesium Hydroxide (Milk Of Magnesia) 30 ml PO Q4HR PRN PRN Reason: Constipation Stop: 07/29/17 22:04 Pantoprazole Sodium (Protonix) 40 mg PO DAILY [facility] Stop: 07/30/17 08:59 Last Admin: 06/10/17 09:05 Dose: Not Given Quetiapine Fumarate (Seroquel) 100 mg PO BID [facility] PRN Reason: Protocol Stop: 07/30/17 08:59 Last Admin: 06/10/17 09:05 Dose: Not Given Vitamin D (Vitamin D) 400 iu PO DAILY [facility] Stop: 07/30/17 08:59 Last Admin: 06/10/17 09:05 Dose: Not Given General: demented HEENT: NC/AT, PERRLA, EOMI, anicteric sclerae, throat clear Neck: Supple, No JVD, No thyromegaly Lungs: CTAB Cardiovascular: RRR, Normal S1, Normal S2, without murmur Abdomen: non-tender, non-distended Extremities: clear Neurological: no change Internal Medicine Assmt/Plan - Assessment Assessment: 1.PARKINSON DISEASE. 2.HTN. 3.HYPOTHYROIDISM. 4.DEMENTIA. - Plan Plan: CONTINUE ON CURRENT MEDICATION AND DIET. Nutritional Asmnt/Malnutr-PDOC - Dietary Evaluation Malnutrition Findings (Please click <Entered> for more info): Nutritional Asmnt/Malnutrition Start: 06/04/17 15: 10 Text: Status: Complete Freq: Document 06/04/17 15:10 LCHENG (Rec: 06/04/17 15:33 LCHENG [id number]) Nutritional Asmnt/Malnutrition Patient General Information Nutritional Screening Moderate Risk Diagnosis psychosis Pertinent Medical Hx/Surgical Hx Parkinson's disease, COPD, hyperlipidemia, hypothyroidism , HTN, degenerative joint disease, psychiatric disorder, chronic anemia Subjective Information Pt is confused, not appropriate to visit at this time. Talked with nursing staff, pt is eating well, 50% of breakfast and 60% lunch today. Tolerated to current diet, no chewing or swallowing problem. PO intake varied 25- 100% per EMR. Pt lived [facility] before admitted per H &P. Current Diet Order/ Nutrition Support Mechanical Soft Chopped, CCHO, MARILU Patient / S.O Not Indicated Pertinent Medications Colace, Culturelle, Synthroid, Seroquel, Vitamin D Pertinent Labs on addmission (per H&P): BUN 40 H, Cr 2.9 H, TSH 13 H, Alb 3.8, Hgb 11.1 L Nutritional Hx/Data Height 1.63 m Height (Calculated Centimeters) 162.6 Current Weight (lbs) 61.689 kg Weight (Calculated Kilograms) 61.7 Weight (Calculated Grams) 27137.6 [place] Body Weight 120 % [place] Body Weight 113 Weight Status Approriate GI Symptoms GI Symptoms None Food Allergies No Skin Integrity/Comment: intact Current %PO 25-100% Estimated Nutritional Goals BEE in Kcals: Using Current wt Calories/Kcals/Kg 25-30 Kcals Calculated 9461-1750 Protein: Using Current wt Protein g/k Protein Calculated 55 Fluid: ml 7491-9130 Nutritional Problem No current Nutrition Prob Problem N/A Etiology N/A Signs/Symptoms: N/A Malnutrition Alert Protein-Calorie Malnutrition N/A Is there a minimum of two criteria No selected? Query Text:Check all the applicable criteria. A minimum of two criteria are recommended for diagnosis of either severe or non-severe malnutrition. Intervention/Recommendation Comments 1. Contibue with current diet order, monitor PO intake 2. Monitor labs related to anemia and live function Expected Outcomes/Goals Expected Outcomes/Goals 1. PO intake > 75% to meet recommended nutritional needs 2. wt stability 3. lab values to approach WNL
--- NOTE | 2017-06-11 05:41 | Progress Notes ---
DATE: SUBJECTIVE: Chart reviewed and the patient interviewed. Also discussed the patient's condition with the staff and reviewed records and labs. The patient continued to be anxious and restless. The patient also is still at times refusing to take medications and yesterday the patient refused to take her medications in the morning but she did take her medications in the evening. She also continued to have mood swings and she still wants to be left alone. The patient also still has episodes of agitation and aggressive and refusing care. ASSESSMENT: The patient is still psychotic and considered to be gravely disabled. PLAN: We will continue current medications and it seems that we will have to stop the Risperdal. The patient started to take her medications, which is basically Seroquel 100 mg twice a day. We will continue the same dose. Also, continue to work on her poor impulse control and also continue to work on discharge plans. JOB# [id number]
[2017-06-11] MEDS: Levothyroxine 0.088 Mg Tab PO SCH (06:31)
[2017-06-11] MEDS: Atorvastatin Calcium 10 MG TAB PO SCH (09:20)
[2017-06-11] MEDS: Pantoprazole 40 mg EC Tab PO SCH (09:21)
--- NOTE | 2017-06-11 11:13 | Internal Medicine Prog Note ---
Internal Medicine Subjective - Subjective Service Date: 06/11/17 Patient seen and examined:: with staff (SHE IS REFUSING MEDICATION) Patient is:: awake, in bed, confused Per staff patient has:: no adverse event Internal Medicine Objective - Physical Exam Vitals and I&O: Vital Signs Temp 97.9 F 06/11/17 06:34 Pulse 94 06/11/17 06:34 Resp 18 06/11/17 06:34 BP 96/73 06/11/17 06:34 Pulse Ox 94 06/11/17 06:34 Intake & Output 06/10/17 06/11/17 06/11/17 18:59 06:59 18:59 Intake Total 240 Balance 240 Intake: Oral 240 Other: # Voids 3 # Bowel Movements 0 Active Medications: Current Medications Acetaminophen (Tylenol) 650 mg PO Q6HR PRN PRN Reason: Pain (Mild) Stop: 07/29/17 22:04 Al Hydrox/Mg Hydrox/Simethicone (Maalox) 30 ml PO Q4HR PRN PRN Reason: GI DISTRESS Stop: 07/29/17 22:04 Atorvastatin Calcium (Lipitor) 10 mg PO DAILY [facility]EL PRN Reason: Protocol Stop: 07/30/17 08:59 Last Admin: 06/10/17 09:05 Dose: Not Given Docusate Sodium (Colace) 250 mg PO BID [facility] Stop: 07/30/17 08:59 Last Admin: 06/10/17 09:05 Dose: Not Given Levothyroxine Sodium (Synthroid) 0.088 mg PO QDAC [facility] Stop: 07/30/17 07:29 Last Admin: 06/11/17 06:31 Dose: Not Given Lorazepam (Ativan) 0.5 mg PO Q4HR PRN; Protocol PRN Reason: Agitation Stop: 07/30/17 07:30 Losartan Potassium (Cozaar) 50 mg PO DAILY [facility] Stop: 07/31/17 08:59 Last Admin: 06/10/17 09:05 Dose: Not Given Magnesium Hydroxide (Milk Of Magnesia) 30 ml PO Q4HR PRN PRN Reason: Constipation Stop: 07/29/17 22:04 Pantoprazole Sodium (Protonix) 40 mg PO DAILY [facility] Stop: 07/30/17 08:59 Last Admin: 06/10/17 09:05 Dose: Not Given Quetiapine Fumarate (Seroquel) 100 mg PO BID [facility] PRN Reason: Protocol Stop: 07/30/17 08:59 Last Admin: 06/10/17 09:05 Dose: Not Given Vitamin D (Vitamin D) 400 iu PO DAILY [facility] Stop: 07/30/17 08:59 Last Admin: 06/10/17 09:05 Dose: Not Given General: demented HEENT: NC/AT, PERRLA, EOMI, anicteric sclerae, throat clear Neck: Supple, No JVD, No thyromegaly Lungs: CTAB Cardiovascular: RRR, Normal S1, Normal S2, without murmur Abdomen: non-tender, non-distended Extremities: clear Neurological: no change Internal Medicine Assmt/Plan - Assessment Assessment: 1.PARKINSON DISEASE. 2.HTN. 3.HYPOTHYROIDISM. 4.DEMENTIA. - Plan Plan: CONTINUE ON CURRENT MEDICATION AND DIET. Nutritional Asmnt/Malnutr-PDOC - Dietary Evaluation Malnutrition Findings (Please click <Entered> for more info): Nutritional Asmnt/Malnutrition Start: 06/04/17 15: 10 Text: Status: Complete Freq: Document 06/04/17 15:10 LCHENG (Rec: 06/04/17 15:33 LCHENG [id number]) Nutritional Asmnt/Malnutrition Patient General Information Nutritional Screening Moderate Risk Diagnosis psychosis Pertinent Medical Hx/Surgical Hx Parkinson's disease, COPD, hyperlipidemia, hypothyroidism , HTN, degenerative joint disease, psychiatric disorder, chronic anemia Subjective Information Pt is confused, not appropriate to visit at this time. Talked with nursing staff, pt is eating well, 50% of breakfast and 60% lunch today. Tolerated to current diet, no chewing or swallowing problem. PO intake varied 25- 100% per EMR. Pt lived at [facility] facility before admitted per H &P. Current Diet Order/ Nutrition Support Mechanical Soft Chopped, CCHO, MARILU Patient / S.O Not Indicated Pertinent Medications Colace, Culturelle, Synthroid, Seroquel, Vitamin D Pertinent Labs on addmission (per H&P): BUN 40 H, Cr 2.9 H, TSH 13 H, Alb 3.8, Hgb 11.1 L Nutritional Hx/Data Height 1.63 m Height (Calculated Centimeters) 162.6 Current Weight (lbs) 61.689 kg Weight (Calculated Kilograms) 61.7 Weight (Calculated Grams) 97942.6 [place] Body Weight 120 % [place] Body Weight 113 Weight Status Approriate GI Symptoms GI Symptoms None Food Allergies No Skin Integrity/Comment: intact Current %PO 25-100% Estimated Nutritional Goals BEE in Kcals: Using Current wt Calories/Kcals/Kg 25-30 Kcals Calculated 3859-5858 Protein: Using Current wt Protein g/k Protein Calculated 55 Fluid: ml 6263-3336 Nutritional Problem No current Nutrition Prob Problem N/A Etiology N/A Signs/Symptoms: N/A Malnutrition Alert Protein-Calorie Malnutrition N/A Is there a minimum of two criteria No selected? Query Text:Check all the applicable criteria. A minimum of two criteria are recommended for diagnosis of either severe or non-severe malnutrition. Intervention/Recommendation Comments 1. Contibue with current diet order, monitor PO intake 2. Monitor labs related to anemia and live function Expected Outcomes/Goals Expected Outcomes/Goals 1. PO intake > 75% to meet recommended nutritional needs 2. wt stability 3. lab values to approach WNL
[2017-06-12] MEDS: Levothyroxine 0.088 Mg Tab PO SCH (06:41)
[2017-06-12] MEDS: Atorvastatin Calcium 10 MG TAB PO SCH (08:49)
[2017-06-12] MEDS: Pantoprazole 40 mg EC Tab PO SCH (08:49)
--- NOTE | 2017-06-12 17:48 | Internal Medicine Prog Note ---
Internal Medicine Subjective - Subjective Service Date: 06/12/17 Patient seen and examined:: without staff Patient is:: awake, in bed, confused Per staff patient has:: no adverse event Internal Medicine Objective - Physical Exam Vitals and I&O: Vital Signs Temp 98.4 F 06/12/17 14:00 Pulse 100 06/12/17 14:00 Resp 20 06/12/17 14:00 BP 100/64 06/12/17 14:00 Pulse Ox 96 06/12/17 14:00 Intake & Output 06/11/17 06/12/17 06/12/17 18:59 06:59 18:59 Intake Total 1800 120 Balance 1800 120 Intake: Oral 1800 120 Other: # Voids 4 3 # Bowel Movements 0 Stool Characteristics Formed Brown Active Medications: Current Medications Acetaminophen (Tylenol) 650 mg PO Q6HR PRN PRN Reason: Pain (Mild) Stop: 07/29/17 22:04 Al Hydrox/Mg Hydrox/Simethicone (Maalox) 30 ml PO Q4HR PRN PRN Reason: GI DISTRESS Stop: 07/29/17 22:04 Atorvastatin Calcium (Lipitor) 10 mg PO DAILY [facility] PRN Reason: Protocol Stop: 07/30/17 08:59 Last Admin: 06/12/17 08:49 Dose: Not Given Docusate Sodium (Colace) 250 mg PO BID [facility] Stop: 07/30/17 08:59 Last Admin: 06/12/17 17:13 Dose: Not Given Levothyroxine Sodium (Synthroid) 0.088 mg PO QDAC [facility] Stop: 07/30/17 07:29 Last Admin: 06/12/17 06:41 Dose: Not Given Lorazepam (Ativan) 0.5 mg PO Q4HR PRN; Protocol PRN Reason: Agitation Stop: 07/30/17 07:30 Losartan Potassium (Cozaar) 50 mg PO DAILY [facility] Stop: 07/31/17 08:59 Last Admin: 06/12/17 08:49 Dose: Not Given Magnesium Hydroxide (Milk Of Magnesia) 30 ml PO Q4HR PRN PRN Reason: Constipation Stop: 07/29/17 22:04 Pantoprazole Sodium (Protonix) 40 mg PO DAILY [facility] Stop: 07/30/17 08:59 Last Admin: 06/12/17 08:49 Dose: Not Given Quetiapine Fumarate (Seroquel) 100 mg PO BID [facility] PRN Reason: Protocol Stop: 07/30/17 08:59 Last Admin: 06/12/17 17:13 Dose: Not Given Vitamin D (Vitamin D) 400 iu PO DAILY [facility] Stop: 07/30/17 08:59 Last Admin: 06/12/17 08:49 Dose: Not Given General: demented HEENT: NC/AT, PERRLA, EOMI, anicteric sclerae, throat clear Neck: Supple, No JVD, No thyromegaly Lungs: CTAB Cardiovascular: RRR, Normal S1, Normal S2, without murmur Abdomen: non-tender, non-distended Extremities: clear Neurological: no change Internal Medicine Assmt/Plan - Assessment Assessment: 1.PARKINSON DISEASE. 2.HTN. 3.HYPOTHYROIDISM. 4.DEMENTIA. - Plan Plan: CONTINUE ON CURRENT MEDICATION AND DIET. Nutritional Asmnt/Malnutr-PDOC - Dietary Evaluation Malnutrition Findings (Please click <Entered> for more info): Nutritional Asmnt/Malnutrition Start: 06/04/17 15: 10 Text: Status: Complete Freq: Document 06/04/17 15:10 LCHENG (Rec: 06/04/17 15:33 LCHENG [id number]) Nutritional Asmnt/Malnutrition Patient General Information Nutritional Screening Moderate Risk Diagnosis psychosis Pertinent Medical Hx/Surgical Hx Parkinson's disease, COPD, hyperlipidemia, hypothyroidism , HTN, degenerative joint disease, psychiatric disorder, chronic anemia Subjective Information Pt is confused, not appropriate to visit at this time. Talked with nursing staff, pt is eating well, 50% of breakfast and 60% lunch today. Tolerated to current diet, no chewing or swallowing problem. PO intake varied 25- 100% per EMR. Pt lived at alf facility before admitted per H &P. Current Diet Order/ Nutrition Support Mechanical Soft Chopped, CCHO, MARILU Patient / S.O Not Indicated Pertinent Medications Colace, Culturelle, Synthroid, Seroquel, Vitamin D Pertinent Labs on addmission (per H&P): BUN 40 H, Cr 2.9 H, TSH 13 H, Alb 3.8, Hgb 11.1 L Nutritional Hx/Data Height 1.63 m Height (Calculated Centimeters) 162.6 Current Weight (lbs) 61.689 kg Weight (Calculated Kilograms) 61.7 Weight (Calculated Grams) 66753.6 [place] Body Weight 120 % [place] Body Weight 113 Weight Status Approriate GI Symptoms GI Symptoms None Food Allergies No Skin Integrity/Comment: intact Current %PO 25-100% Estimated Nutritional Goals BEE in Kcals: Using Current wt Calories/Kcals/Kg 25-30 Kcals Calculated 4999-1413 Protein: Using Current wt Protein g/k Protein Calculated 55 Fluid: ml 7047-8501 Nutritional Problem No current Nutrition Prob Problem N/A Etiology N/A Signs/Symptoms: N/A Malnutrition Alert Protein-Calorie Malnutrition N/A Is there a minimum of two criteria No selected? Query Text:Check all the applicable criteria. A minimum of two criteria are recommended for diagnosis of either severe or non-severe malnutrition. Intervention/Recommendation Comments 1. Contibue with current diet order, monitor PO intake 2. Monitor labs related to anemia and live function Expected Outcomes/Goals Expected Outcomes/Goals 1. PO intake > 75% to meet recommended nutritional needs 2. wt stability 3. lab values to approach WNL
--- NOTE | 2017-06-13 03:07 | Progress Notes ---
DATE: 06/12/2017 PSYCHIATRIC PROGRESS NOTE SUBJECTIVE: Chart reviewed and the patient interviewed. Also discussed the patient's condition with the staff and reviewed records and labs. The patient is still isolative and withdrawn and guarded. The patient also is still suspicious and seems to be paranoid. The patient is refusing medications and she is still giving no reason for why she is refusing to take medications. She also needs to be monitored closely. ASSESSMENT: The patient is still agitated and psychotic. TREATMENT PLAN: Continue to work on the patient's noncompliance with treatment and her medications. Also, continue to work on her ineffective coping and followup. JOB# [id number]
[2017-06-13] MEDS: Levothyroxine 0.088 Mg Tab PO SCH (06:41)
[2017-06-13] MEDS: Pantoprazole 40 mg EC Tab PO SCH (09:00)
--- NOTE | 2017-06-13 09:05 | Progress Notes ---
DATE: 06/12/2017 PSYCHIATRIC PROGRESS NOTE Chart reviewed and the patient interviewed. Also discussed the patient's condition with the staff and reviewed records and labs. The patient is still anxious and is still in irritable mood. The patient also is still suspicious and wants to be left alone. The patient also is still having periods of anger and being sarcastic and verbally abusive to staff, but seems to be slightly less. Also, did not take her medications yesterday. ASSESSMENT: The patient is still psychotic. TREATMENT PLAN: We will continue monitoring her behavior and her condition closely. Also, continue to work on her impulsivity and anger, and we will continue to follow up. JOB# [id number]
[2017-06-13] MEDS: Atorvastatin Calcium 10 MG TAB PO SCH (09:14)
--- NOTE | 2017-06-13 17:04 | Internal Medicine Prog Note ---
Internal Medicine Subjective - Subjective Service Date: 06/13/17 Patient seen and examined:: with staff Patient is:: awake, in bed, confused Per staff patient has:: no adverse event Internal Medicine Objective - Physical Exam Vitals and I&O: Vital Signs Temp 98.3 F 06/13/17 06:39 Pulse 77 06/13/17 09:14 Resp 18 06/13/17 06:39 BP 126/84 06/13/17 09:14 Pulse Ox 99 06/13/17 06:39 Intake & Output 06/12/17 06/13/17 06/13/17 18:59 06:59 18:59 Intake Total 1600 120 Balance 1600 120 Intake: Oral 1600 120 Other: # Voids 4 3 # Bowel Movements 0 Stool Characteristics Formed Brown Active Medications: Current Medications Acetaminophen (Tylenol) 650 mg PO Q6HR PRN PRN Reason: Pain (Mild) Stop: 07/29/17 22:04 Al Hydrox/Mg Hydrox/Simethicone (Maalox) 30 ml PO Q4HR PRN PRN Reason: GI DISTRESS Stop: 07/29/17 22:04 Atorvastatin Calcium (Lipitor) 10 mg PO DAILY [facility] PRN Reason: Protocol Stop: 07/30/17 08:59 Last Admin: 06/13/17 09:14 Dose: Not Given Docusate Sodium (Colace) 250 mg PO BID [facility] Stop: 07/30/17 08:59 Last Admin: 06/13/17 16:08 Dose: Not Given Levothyroxine Sodium (Synthroid) 0.088 mg PO QDAC [facility] Stop: 07/30/17 07:29 Last Admin: 06/13/17 06:41 Dose: Not Given Lorazepam (Ativan) 0.5 mg PO Q4HR PRN; Protocol PRN Reason: Agitation Stop: 07/30/17 07:30 Losartan Potassium (Cozaar) 50 mg PO DAILY [facility] Stop: 07/31/17 08:59 Last Admin: 06/13/17 09:14 Dose: Not Given Magnesium Hydroxide (Milk Of Magnesia) 30 ml PO Q4HR PRN PRN Reason: Constipation Stop: 07/29/17 22:04 Pantoprazole Sodium (Protonix) 40 mg PO DAILY [facility] Stop: 07/30/17 08:59 Last Admin: 06/13/17 09:00 Dose: Not Given Quetiapine Fumarate (Seroquel) 100 mg PO BID [facility] PRN Reason: Protocol Stop: 07/30/17 08:59 Last Admin: 06/13/17 16:08 Dose: Not Given Vitamin D (Vitamin D) 400 iu PO DAILY [facility] Stop: 07/30/17 08:59 Last Admin: 06/13/17 09:00 Dose: Not Given General: demented HEENT: NC/AT, PERRLA, EOMI, anicteric sclerae, throat clear Neck: Supple, No JVD, No thyromegaly Lungs: CTAB Cardiovascular: RRR, Normal S1, Normal S2, without murmur Abdomen: non-tender, non-distended Extremities: clear Neurological: no change Internal Medicine Assmt/Plan - Assessment Assessment: 1.PARKINSON DISEASE. 2.HTN. 3.HYPOTHYROIDISM. 4.DEMENTIA. - Plan Plan: CONTINUE ON CURRENT MEDICATION AND DIET. Nutritional Asmnt/Malnutr-PDOC - Dietary Evaluation Malnutrition Findings (Please click <Entered> for more info): Nutritional Asmnt/Malnutrition Start: 06/04/17 15: 10 Text: Status: Complete Freq: Document 06/04/17 15:10 LCHENG (Rec: 06/04/17 15:33 LCHENG [id number]) Nutritional Asmnt/Malnutrition Patient General Information Nutritional Screening Moderate Risk Diagnosis psychosis Pertinent Medical Hx/Surgical Hx Parkinson's disease, COPD, hyperlipidemia, hypothyroidism , HTN, degenerative joint disease, psychiatric disorder, chronic anemia Subjective Information Pt is confused, not appropriate to visit at this time. Talked with nursing staff, pt is eating well, 50% of breakfast and 60% lunch today. Tolerated to current diet, no chewing or swallowing problem. PO intake varied 25- 100% per EMR. Pt lived at [facility] facility before admitted per H &P. Current Diet Order/ Nutrition Support Mechanical Soft Chopped, CCHO, MARILU Patient / S.O Not Indicated Pertinent Medications Colace, Culturelle, Synthroid, Seroquel, Vitamin D Pertinent Labs on addmission (per H&P): BUN 40 H, Cr 2.9 H, TSH 13 H, Alb 3.8, Hgb 11.1 L Nutritional Hx/Data Height 1.63 m Height (Calculated Centimeters) 162.6 Current Weight (lbs) 61.689 kg Weight (Calculated Kilograms) 61.7 Weight (Calculated Grams) 88268.6 [place] Body Weight 120 % [place] Body Weight 113 Weight Status Approriate GI Symptoms GI Symptoms None Food Allergies No Skin Integrity/Comment: intact Current %PO 25-100% Estimated Nutritional Goals BEE in Kcals: Using Current wt Calories/Kcals/Kg 25-30 Kcals Calculated 6448-0968 Protein: Using Current wt Protein g/k Protein Calculated 55 Fluid: ml 3551-9474 Nutritional Problem No current Nutrition Prob Problem N/A Etiology N/A Signs/Symptoms: N/A Malnutrition Alert Protein-Calorie Malnutrition N/A Is there a minimum of two criteria No selected? Query Text:Check all the applicable criteria. A minimum of two criteria are recommended for diagnosis of either severe or non-severe malnutrition. Intervention/Recommendation Comments 1. Contibue with current diet order, monitor PO intake 2. Monitor labs related to anemia and live function Expected Outcomes/Goals Expected Outcomes/Goals 1. PO intake > 75% to meet recommended nutritional needs 2. wt stability 3. lab values to approach WNL
--- NOTE | 2017-06-14 02:21 | Progress Notes ---
DATE: 06/13/[address] Geller. Case was discussed with staff of the patient, reviewed records. 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 The patient continues to be anxious, irritable, continues to be suspicious, likes to be left alone with episodes of anger, irritability and verbally abusive to the staff. She is not compliant with the medication. We will continue to work with the patient in group therapy, milieu therapy, adjust the medication as needed. JOB# [id number]
[2017-06-14] MEDS: Levothyroxine 0.088 Mg Tab PO SCH (06:44)
[2017-06-14] MEDS: Atorvastatin Calcium 10 MG TAB PO SCH (09:03)
[2017-06-14] MEDS: Pantoprazole 40 mg EC Tab PO SCH (09:04)
--- NOTE | 2017-06-14 13:21 | General Progress Note ---
Subjective - Review of Systems Service Date: 06/14/17 Subjective: awake and communicative confused Objective - Physical Exam Vitals and I&O: Vital Signs Temp 97.9 F 06/14/17 06:34 Pulse 83 06/14/17 09:03 Resp 19 06/14/17 08:00 BP 108/71 06/14/17 09:03 Pulse Ox 100 06/14/17 06:34 Intake & Output 06/13/17 06/14/17 06/14/17 18:59 06:59 18:59 Intake Total 960 120 Balance 960 120 Intake: Oral 960 120 Other: # Voids 3 3 # Bowel Movements 0 Stool Characteristics Formed Formed Brown Brown Active Medications: Current Medications Acetaminophen (Tylenol) 650 mg PO Q6HR PRN PRN Reason: Pain (Mild) Stop: 07/29/17 22:04 Al Hydrox/Mg Hydrox/Simethicone (Maalox) 30 ml PO Q4HR PRN PRN Reason: GI DISTRESS Stop: 07/29/17 22:04 Atorvastatin Calcium (Lipitor) 10 mg PO DAILY EZEQUIEL PRN Reason: Protocol Stop: 07/30/17 08:59 Last Admin: 06/14/17 09:03 Dose: Not Given Docusate Sodium (Colace) 250 mg PO BID [facility] Stop: 07/30/17 08:59 Last Admin: 06/14/17 09:03 Dose: Not Given Levothyroxine Sodium (Synthroid) 0.088 mg PO QDAC [facility] Stop: 07/30/17 07:29 Last Admin: 06/14/17 06:44 Dose: Not Given Lorazepam (Ativan) 0.5 mg PO Q4HR PRN; Protocol PRN Reason: Agitation Stop: 07/30/17 07:30 Losartan Potassium (Cozaar) 50 mg PO DAILY [facility] Stop: 07/31/17 08:59 Last Admin: 06/14/17 09:03 Dose: Not Given Magnesium Hydroxide (Milk Of Magnesia) 30 ml PO Q4HR PRN PRN Reason: Constipation Stop: 07/29/17 22:04 Pantoprazole Sodium (Protonix) 40 mg PO DAILY [facility] Stop: 07/30/17 08:59 Last Admin: 06/14/17 09:04 Dose: Not Given Quetiapine Fumarate (Seroquel) 100 mg PO BID EZEQUIEL PRN Reason: Protocol Stop: 07/30/17 08:59 Last Admin: 06/14/17 09:03 Dose: Not Given Vitamin D (Vitamin D) 400 iu PO DAILY [facility] Stop: 07/30/17 08:59 Last Admin: 06/14/17 09:04 Dose: Not Given General: No acute distress HEENT: Atraumatic, PERRLA, EOMI Neck: Supple, JVD Cardiovascular: Regular rate, Normal S1, Normal S2 Lungs: Clear to auscultation Abdomen: Bowel sounds, Soft Neurological: Normal speech Assessment/Plan - Assessment Assessment: parkinson's djd htn hypothyroidism carin copd - Plan Plan: cont current treatment Nutritional Asmnt/Malnutr-PDOC - Dietary Evaluation Malnutrition Findings (Please click <Entered> for more info): Nutritional Asmnt/Malnutrition Start: 06/04/17 15: 10 Text: Status: Complete Freq: Document 06/04/17 15:10 LCSING (Rec: 06/04/17 15:33 LCSING [id number]) Nutritional Asmnt/Malnutrition Patient General Information Nutritional Screening Moderate Risk Diagnosis psychosis Pertinent Medical Hx/Surgical Hx Parkinson's disease, COPD, hyperlipidemia, hypothyroidism , HTN, degenerative joint disease, psychiatric disorder, chronic anemia Subjective Information Pt is confused, not appropriate to visit at this time. Talked with nursing staff, pt is eating well, 50% of breakfast and 60% lunch today. Tolerated to current diet, no chewing or swallowing problem. PO intake varied 25- 100% per EMR. Pt lived at alf facility before admitted per H &P. Current Diet Order/ Nutrition Support Mechanical Soft Chopped, CCHO, MARILU Patient / S.O Not Indicated Pertinent Medications Colace, Culturelle, Synthroid, Seroquel, Vitamin D Pertinent Labs on addmission (per H&P): BUN 40 H, Cr 2.9 H, TSH 13 H, Alb 3.8, Hgb 11.1 L Nutritional Hx/Data Height 1.63 m Height (Calculated Centimeters) 162.6 Current Weight (lbs) 61.689 kg Weight (Calculated Kilograms) 61.7 Weight (Calculated Grams) 75202.6 [place] Body Weight 120 % [place] Body Weight 113 Weight Status Approriate GI Symptoms GI Symptoms None Food Allergies No Skin Integrity/Comment: intact Current %PO 25-100% Estimated Nutritional Goals BEE in Kcals: Using Current wt Calories/Kcals/Kg 25-30 Kcals Calculated 7928-9100 Protein: Using Current wt Protein g/k Protein Calculated 55 Fluid: ml 7658-0249 Nutritional Problem No current Nutrition Prob Problem N/A Etiology N/A Signs/Symptoms: N/A Malnutrition Alert Protein-Calorie Malnutrition N/A Is there a minimum of two criteria No selected? Query Text:Check all the applicable criteria. A minimum of two criteria are recommended for diagnosis of either severe or non-severe malnutrition. Intervention/Recommendation Comments 1. Contibue with current diet order, monitor PO intake 2. Monitor labs related to anemia and live function Expected Outcomes/Goals Expected Outcomes/Goals 1. PO intake > 75% to meet recommended nutritional needs 2. wt stability 3. lab values to approach WNL
[2017-06-15] MEDS: Levothyroxine 0.088 Mg Tab PO SCH (06:30)
[2017-06-15] MEDS: Atorvastatin Calcium 10 MG TAB PO SCH (09:25)
[2017-06-15] MEDS: Pantoprazole 40 mg EC Tab PO SCH (09:26)
--- NOTE | 2017-06-15 17:22 | General Progress Note ---
Subjective - Review of Systems Service Date: 06/15/17 Subjective: awake and communicative confused Objective - Physical Exam Vitals and I&O: Vital Signs Temp 98 F 06/15/17 16:23 Pulse 83 06/15/17 16:23 Resp 20 06/15/17 16:23 BP 108/77 06/15/17 16:23 Pulse Ox 97 06/15/17 16:23 Intake & Output 06/14/17 06/15/17 06/15/17 18:59 06:59 18:59 Intake Total 600 480 Balance 600 480 Intake: Oral 600 480 Other: # Voids 3 1 # Bowel Movements 1 Stool Characteristics Formed Brown Active Medications: Current Medications Acetaminophen (Tylenol) 650 mg PO Q6HR PRN PRN Reason: Pain (Mild) Stop: 07/29/17 22:04 Al Hydrox/Mg Hydrox/Simethicone (Maalox) 30 ml PO Q4HR PRN PRN Reason: GI DISTRESS Stop: 07/29/17 22:04 Atorvastatin Calcium (Lipitor) 10 mg PO DAILY EZEQUIEL PRN Reason: Protocol Stop: 07/30/17 08:59 Last Admin: 06/15/17 09:25 Dose: Not Given Docusate Sodium (Colace) 250 mg PO BID [facility] Stop: 07/30/17 08:59 Last Admin: 06/15/17 17:03 Dose: Not Given Levothyroxine Sodium (Synthroid) 0.088 mg PO QDAC [facility] Stop: 07/30/17 07:29 Last Admin: 06/15/17 06:30 Dose: Not Given Losartan Potassium (Cozaar) 50 mg PO DAILY [facility] Stop: 07/31/17 08:59 Last Admin: 06/15/17 09:26 Dose: Not Given Magnesium Hydroxide (Milk Of Magnesia) 30 ml PO Q4HR PRN PRN Reason: Constipation Stop: 07/29/17 22:04 Pantoprazole Sodium (Protonix) 40 mg PO DAILY [facility] Stop: 07/30/17 08:59 Last Admin: 06/15/17 09:26 Dose: Not Given Quetiapine Fumarate (Seroquel) 100 mg PO BID E[facility]QUIEL PRN Reason: Protocol Stop: 07/30/17 08:59 Last Admin: 06/15/17 17:03 Dose: Not Given Vitamin D (Vitamin D) 400 iu PO DAILY [facility] Stop: 07/30/17 08:59 Last Admin: 06/15/17 09:26 Dose: Not Given General: No acute distress HEENT: Atraumatic, PERRLA, EOMI Neck: Supple, JVD Cardiovascular: Regular rate, Normal S1, Normal S2 Lungs: Clear to auscultation Abdomen: Bowel sounds, Soft Neurological: Normal speech Assessment/Plan - Assessment Assessment: parkinson's djd htn hypothyroidism [place] copd - Plan Plan: cont current treatment Nutritional Asmnt/Malnutr-PDOC - Dietary Evaluation Malnutrition Findings (Please click <Entered> for more info): Nutritional Asmnt/Malnutrition Start: 06/04/17 15: 10 Text: Status: Complete Freq: Document 06/04/17 15:10 OLGA (Rec: 06/04/17 15:33 OLGA [id number]) Nutritional Asmnt/Malnutrition Patient General Information Nutritional Screening Moderate Risk Diagnosis psychosis Pertinent Medical Hx/Surgical Hx Parkinson's disease, COPD, hyperlipidemia, hypothyroidism , HTN, degenerative joint disease, psychiatric disorder, chronic anemia Subjective Information Pt is confused, not appropriate to visit at this time. Talked with nursing staff, pt is eating well, 50% of breakfast and 60% lunch today. Tolerated to current diet, no chewing or swallowing problem. PO intake varied 25- 100% per EMR. [facility] H &P. Current Diet Order/ Nutrition Support Mechanical Soft Chopped, CCHO, MARILU Patient / S.O Not Indicated Pertinent Medications Colace, Culturelle, Synthroid, Seroquel, Vitamin D Pertinent Labs on addmission (per H&P): BUN 40 H, Cr 2.9 H, TSH 13 H, Alb 3.8, Hgb 11.1 L Nutritional Hx/Data Height 1.63 m Height (Calculated Centimeters) 162.6 Current Weight (lbs) 61.689 kg Weight (Calculated Kilograms) 61.7 Weight (Calculated Grams) 64227.6 [place] Body Weight 120 % [place] Body Weight 113 Weight Status Approriate GI Symptoms GI Symptoms None Food Allergies No Skin Integrity/Comment: intact Current %PO 25-100% Estimated Nutritional Goals BEE in Kcals: Using Current wt Calories/Kcals/Kg 25-30 Kcals Calculated 3913-1106 Protein: Using Current wt Protein g/k Protein Calculated 55 Fluid: ml 2125-0097 Nutritional Problem No current Nutrition Prob Problem N/A Etiology N/A Signs/Symptoms: N/A Malnutrition Alert Protein-Calorie Malnutrition N/A Is there a minimum of two criteria No selected? Query Text:Check all the applicable criteria. A minimum of two criteria are recommended for diagnosis of either severe or non-severe malnutrition. Intervention/Recommendation Comments 1. Contibue with current diet order, monitor PO intake 2. Monitor labs related to anemia and live function Expected Outcomes/Goals Expected Outcomes/Goals 1. PO intake > 75% to meet recommended nutritional needs 2. wt stability 3. lab values to approach WNL
--- NOTE | 2017-06-16 00:09 | Progress Notes ---
DATE: 06/15/2017 Case was discussed with staff of the patient. The patient is not showing much progress. According to the staff, she is sleeping. She is staying in her bed. She is eating well. When I asked her why she is not taking medication, she did not answer me. Unable to participate in meaningful conversation or make safe plan for self-care. She is on Seroquel 100 mg twice a day, but she rarely takes it. No side effects, no sedation or nausea. I will leave it up to Dr. Geller to make a decision about ____ her, as I will not be seeing her long enough to do it myself as he would be back and my concern is that they might not to be suitable to him. We will continue to work with the patient in group therapy, milieu therapy, adjust the medication as needed. JOB# [id number]
[2017-06-16] MEDS: Levothyroxine 0.088 Mg Tab PO SCH (06:46)
[2017-06-16] MEDS: Atorvastatin Calcium 10 MG TAB PO SCH (09:22)
[2017-06-16] MEDS: Pantoprazole 40 mg EC Tab PO SCH (09:23)
--- NOTE | 2017-06-16 09:41 | Progress Notes ---
DATE: 06/14/[address] Geller. Case was discussed with staff of the patient, reviewed records. The patient continued to isolate herself. Continues to have poor insight, continues to be unable to make safe plan for self-care. Sleeping well, eating well. No side effects with the medication, no sedation, no nausea, no extrapyramidal symptoms. However, she tended not take her medication at times and I asked the patient why she is not taking her medications, she looked at me, looked the other way, would not give me any answer, unpredictable, impulsive. We will continue the patient in group therapy and milieu therapy, adjust medications as needed. JOB# [id number]
--- NOTE | 2017-06-16 21:49 | Progress Notes ---
DATE: 06/16/2017 Case was discussed with staff of the patient, reviewed records. The patient apparently is still staying in bed, does not take medication. She is selective. She is sleeping well, eating well. I do think that this patient could be taken care of her at a lower level of care, especially that she goes to a [facility] and have a psychiatrist to monitor her. She has not been acting anyway aggressive or dangerous, so it is a possibility now ___ since she has been here for a long time and Dr. Geller does not feel at those moments that she needed ____ her concern that she was not acting out, and meanwhile we will continue to work with the patient in group therapy, milieu therapy, adjust the medications as needed. JOB# [id number]
== END 2017-06-16 12:00 | DRG 885 ==
LOC: GERO 20:48
PROVIDERS: ADMIT Psychiatry & Neurology Psychiatry; ATTEND Psychiatry & Neurology Psychiatry
DX: F29 Unspecified psychosis not due to a substance or known physiological condition (principal); N17.9 Acute kidney failure, unspecified; F02.81 Dementia in other diseases classified elsewhere, unspecified severity, with behavioral disturbance; G20 Parkinson's disease; F22 Delusional disorders; J44.9 Chronic obstructive pulmonary disease, unspecified; M19.90 Unspecified osteoarthritis, unspecified site; I10 Essential (primary) hypertension; D64.9 Anemia, unspecified; E03.9 Hypothyroidism, unspecified; E78.5 Hyperlipidemia, unspecified; E86.0 Dehydration; F39 Unspecified mood [affective] disorder
CPT/HCPCS: Z7610